=== PATIENT | male | born 1950 | race Caucasian/White ===

== ENCOUNTER 2017-07-25 16:04 | Emergency (ER) | payer MEDICARE ==
[2017-07-25 16:12] VITALS: RESP 18
[2017-07-25 17:13] LABS: Basophils % (A) 0 %; Eosinophils # (A) 0.5 k/uL (0-0.7); Eosinophils % (A) 5 %; HCT 41.9 % (39.0-53.0); HGB 14.4 gm/dL (13.0-17.5); Lymphocytes # (A) 1.2 k/uL (1.0-4.8); Lymphocytes % (A) 12 %; MCH 30.4 pg (25.0-35.0); MCHC 34.3 g/dL (31.0-37.0); MCV 88.6 fL (80.0-100.0); Mean Platelet Volume 7.9; Monocytes # (A) 0.5 k/uL (0-1.0); Monocytes % (A) 5 %; Neutrophils # (A) 7.2 k/uL (1.3-7.7); Neutrophils % (A) 76 %; Platelet Count 174 k/uL (150-450); RBC 4.73 m/uL (4.30-5.90); WBC 9.5 k/uL (3.8-10.6)
--- NOTE | 2017-07-25 17:14 | ED ---
General Adult HPI - General Chief complaint: Recheck/Abnormal Lab/Rx Stated complaint: Weakness Time Seen by Provider: 07/25/17 16:10 Source: patient, EMS, RN notes reviewed Mode of arrival: EMS Limitations: no limitations - History of Present Illness Initial comments: 67-year-old male presents emergency Department with chief complaint of feeling weak and episode of vomiting. Patient states that he apparently had a skilled nursing house. Patient is concerned that his lithium level is low though he states he does not take lithium. Patient states that he believes that this is related to his salt intake. Patient denies any headache, dizziness, drug use no complaints this time. Patient denies any diarrhea constipation. Patient denies any focal weakness he states he just generalized feels rundown. - Related Data Home Medications Medication Instructions Recorded Confirmed Omeprazole [PriLOSEC] 20 mg PO DAILY 04/08/14 07/25/17 Metoprolol Tartrate [Lopressor] 25 mg PO BID 04/12/14 07/25/17 Previous Rx's Medication Instructions Recorded Haloperidol [Haldol] 1 mg PO BID #60 tab 04/22/14 Lisinopril [Prinivil] 20 mg PO HS #30 tablet 04/22/14 Allergies Allergy/AdvReac Type Severity Reaction Status Date / Time laundry detergent Allergy Rash/Hives Uncoded 07/25/17 16:12 Review of Systems ROS Statement: Those systems with pertinent positive or pertinent negative responses have been documented in the HPI. ROS Other: All systems not noted in ROS Statement are negative. Past Medical History Past Medical History: Hyperlipidemia, Hypertension Additional Past Medical History / Comment(s): schizophrenia History of Any Multi-Drug Resistant Organisms: None Reported Past Surgical History: Hernia Repair Additional Past Surgical History / Comment(s): cataract Past Anesthesia/Blood Transfusion Reactions: No Reported Reaction Past Psychological History: Anxiety, Schizophrenia Smoking Status: Current every day smoker Past Alcohol Use History: None Reported, Unable to Obtain, Occasional Past Drug Use History: None Reported, Unable to Obtain General Exam Limitations: no limitations General appearance: alert, in no apparent distress Head exam: Present: atraumatic, normocephalic, normal inspection Eye exam: Present: normal appearance, PERRL, EOMI. Absent: scleral icterus, conjunctival injection, periorbital swelling ENT exam: Present: normal exam, normal oropharynx, mucous membranes moist Neck exam: Present: normal inspection, full ROM. Absent: tenderness, meningismus, lymphadenopathy Respiratory exam: Present: normal lung sounds bilaterally. Absent: respiratory distress, wheezes, rales, rhonchi, stridor Cardiovascular Exam: Present: regular rate, normal rhythm, normal heart sounds. Absent: systolic murmur, diastolic murmur, rubs, gallop, clicks GI/Abdominal exam: Present: soft, normal bowel sounds. Absent: distended, tenderness, guarding, rebound, rigid Neurological exam: Present: alert, oriented X3, CN II-XII intact, reflexes normal. Absent: motor sensory deficit Skin exam: Present: warm, dry, intact, normal color. Absent: rash Course Vital Signs 07/25/17 07/25/17 16:07 17:05 Temperature 98.6 F Pulse Rate 53 L Respiratory 18 18 Rate Blood Pressure 166/94 166/94 O2 Sat by Pulse 98 Oximetry EKG Findings - EKG Comments: EKG Findings:: 17:20 sinus rhythm with PACs rate of 72 WV 176 QRS 106 QT/QTC 414 /453 Medical Decision Making - Medical Decision Making 67-year-old male presented from it for feeling weak episode nausea vomiting. Patient was hydrated given antiemetics feels better. Patient had some bizarre thinking of concerns of lifting level and salt intake. I do believe this is related to his schizophrenia. He is not currently homicidal or suicidal. Patient refused CT and x-ray. Patient lab work which is unremarkable. Patient was offered psychiatric evaluation but he declined. Patient is making clear decisions at this time and will be discharged back to skilled nursing house. - Lab Data Result diagrams: 07/25/17 17:03 07/25/17 17:03 Lab Results 07/25/17 07/25/17 07/25/17 Range/Units 17:03 17:03 17:03 WBC 9.5 (3.8-10.6) k/uL RBC 4.73 (4.30-5.90) m/uL Hgb 14.4 (13.0-17.5) gm/dL Hct 41.9 (39.0-53.0) % MCV 88.6 (80.0-100.0) fL MCH 30.4 (25.0-35.0) pg MCHC 34.3 (31.0-37.0) g/dL RDW 14.0 (11.5-15.5) % Plt Count 174 (150-450) k/uL Neutrophils % 76 % Lymphocytes % 12 % Monocytes % 5 % Eosinophils % 5 % Basophils % 0 % Neutrophils # 7.2 (1.3-7.7) k/uL Lymphocytes # 1.2 (1.0-4.8) k/uL Monocytes # 0.5 (0-1.0) k/uL Eosinophils # 0.5 (0-0.7) k/uL Basophils # 0.0 (0-0.2) k/uL PT (9.0-12.0) sec INR (<1.2) APTT (22.0-30.0) sec Sodium 142 (137-145) mmol/L Potassium 3.6 (3.5-5.1) mmol/L Chloride 107 (98-107) mmol/L Carbon Dioxide 23 (22-30) mmol/L Anion Gap 12 mmol/L BUN 17 (9-20) mg/dL Creatinine 1.03 (0.66-1.25) mg/dL Est GFR (CKD-EPI)AfAm 88 (>60 ml/min/1.73 sqM) Est GFR (CKD-EPI)NonAf 76 (>60 ml/min/1.73 sqM) Glucose 96 (74-99) mg/dL Calcium 8.7 (8.4-10.2) mg/dL Magnesium 1.9 (1.6-2.3) mg/dL Total Bilirubin 0.7 (0.2-1.3) mg/dL AST 27 (17-59) U/L ALT 30 (21-72) U/L Alkaline Phosphatase 75 (38-126) U/L Total Creatine Kinase 110 (55-170) U/L CK-MB (CK-2) 1.3 (0.0-2.4) ng/mL CK-MB (CK-2) Rel Index 1.2 Troponin I <0.012 (0.000-0.034) ng/mL Total Protein 6.3 (6.3-8.2) g/dL Albumin 4.0 (3.5-5.0) g/dL Urine Color Urine Appearance (Clear) Urine pH (5.0-8.0) Ur Specific Wesley (1.001-1.035) Urine Protein (Negative) Urine Glucose (UA) (Negative) Urine Ketones (Negative) Urine Blood (Negative) Urine Nitrite (Negative) Urine Bilirubin (Negative) Urine Urobilinogen (<2.0) mg/dL Ur Leukocyte Esterase (Negative) Urine Opiates Screen (NotDetected) Ur Oxycodone Screen (NotDetected) Urine Methadone Screen (NotDetected) Ur Propoxyphene Screen (NotDetected) Ur Barbiturates Screen (NotDetected) U Tricyclic Antidepress (NotDetected) Ur Phencyclidine Scrn (NotDetected) Ur Amphetamines Screen (NotDetected) U Methamphetamines Scrn (NotDetected) U Benzodiazepines Scrn (NotDetected) Urine Cocaine Screen (NotDetected) U Marijuana (THC) Screen (NotDetected) Serum Alcohol <10 mg/dL 07/25/17 07/25/17 Range/Units 17:03 17:15 WBC (3.8-10.6) k/uL RBC (4.30-5.90) m/uL Hgb (13.0-17.5) gm/dL Hct (39.0-53.0) % MCV (80.0-100.0) fL MCH (25.0-35.0) pg MCHC (31.0-37.0) g/dL RDW (11.5-15.5) % Plt Count (150-450) k/uL Neutrophils % % Lymphocytes % % Monocytes % % Eosinophils % % Basophils % % Neutrophils # (1.3-7.7) k/uL Lymphocytes # (1.0-4.8) k/uL Monocytes # (0-1.0) k/uL Eosinophils # (0-0.7) k/uL Basophils # (0-0.2) k/uL PT 10.3 (9.0-12.0) sec INR 1.1 (<1.2) APTT 24.1 (22.0-30.0) sec Sodium (137-145) mmol/L Potassium (3.5-5.1) mmol/L Chloride (98-107) mmol/L Carbon Dioxide (22-30) mmol/L Anion Gap mmol/L BUN (9-20) mg/dL Creatinine (0.66-1.25) mg/dL Est GFR (CKD-EPI)AfAm (>60 ml/min/1.73 sqM) Est GFR (CKD-EPI)NonAf (>60 ml/min/1.73 sqM) Glucose (74-99) mg/dL Calcium (8.4-10.2) mg/dL Magnesium (1.6-2.3) mg/dL Total Bilirubin (0.2-1.3) mg/dL AST (17-59) U/L ALT (21-72) U/L Alkaline Phosphatase (38-126) U/L Total Creatine Kinase (55-170) U/L CK-MB (CK-2) (0.0-2.4) ng/mL CK-MB (CK-2) Rel Index Troponin I (0.000-0.034) ng/mL Total Protein (6.3-8.2) g/dL Albumin (3.5-5.0) g/dL Urine Color Colorless Urine Appearance Clear (Clear) Urine pH 5.0 (5.0-8.0) Ur Specific Wesley 1.004 (1.001-1.035) Urine Protein Negative (Negative) Urine Glucose (UA) Negative (Negative) Urine Ketones Negative (Negative) Urine Blood Negative (Negative) Urine Nitrite Negative (Negative) Urine Bilirubin Negative (Negative) Urine Urobilinogen <2.0 (<2.0) mg/dL Ur Leukocyte Esterase Negative (Negative) Urine Opiates Screen Not Detected (NotDetected) Ur Oxycodone Screen Not Detected (NotDetected) Urine Methadone Screen Not Detected (NotDetected) Ur Propoxyphene Screen Not Detected (NotDetected) Ur Barbiturates Screen Not Detected (NotDetected) U Tricyclic Antidepress Not Detected (NotDetected) Ur Phencyclidine Scrn Not Detected (NotDetected) Ur Amphetamines Screen Not Detected (NotDetected) U Methamphetamines Scrn Not Detected (NotDetected) U Benzodiazepines Scrn Not Detected (NotDetected) Urine Cocaine Screen Not Detected (NotDetected) U Marijuana (THC) Screen Not Detected (NotDetected) Serum Alcohol mg/dL Disposition Clinical Impression: Nausea & vomiting, Schizophrenia Disposition: HOME SELF-CARE Condition: Stable Instructions: Acute Nausea and Vomiting (ED) Additional Instructions: Please return to the Emergency Department if symptoms worsen or any other concerns. Is patient prescribed a controlled substance at d/c from ED?: No Referrals: Martin iVeyra MD [Primary Care Provider] - 1-2 days
[2017-07-25 17:25] LABS: INR 1.1 (<1.2); Partial Thromboplastin Time 24.1 sec (22.0-30.0); Prothrombin Time 10.3 sec (9.0-12.0)
[2017-07-25 17:26] LABS: ALT 30 U/L (21-72); AST 27 U/L (17-59); Alcohol <10 mg/dL; Alkaline Phosphatase 75 U/L (38-126); Anion Gap 12 mmol/L; Blood Urea Nitrogen 17 mg/dL (9-20); Calcium 8.7 mg/dL (8.4-10.2); Carbon Dioxide 23 mmol/L (22-30); Chloride 107 mmol/L (98-107); Glucose 96 mg/dL (74-99); Magnesium 1.9 mg/dL (1.6-2.3); Sodium 142 mmol/L (137-145); Total Bilirubin 0.7 mg/dL (0.2-1.3); Total Protein 6.3 g/dL (6.3-8.2)
[2017-07-25 17:29] LABS: Potassium 3.6 mmol/L (3.5-5.1)
[2017-07-25 17:31] LABS: Appearance,Urine Clear (Clear); Bilirubin,Urine Negative (Negative); Blood,Urine Negative (Negative); Color,Urine Colorless; Glucose,Urine (UA) Negative (Negative); Ketones,Urine Negative (Negative); Leukocyte Esterase,Urine Negative (Negative); Nitrite,Urine Negative (Negative); Protein,Urine Negative (Negative); Specific Gravity,Urine 1.004 (1.001-1.035); Urobilinogen,Urine <2.0 mg/dL (<2.0)
[2017-07-25 17:39] LABS: Creatine Kinase 110 U/L (55-170)
[2017-07-25 17:42] LABS: Amphetamine Screen,Urine Not Detected (NotDetected); Barbiturate Screen,Urine Not Detected (NotDetected); Benzodiazepines Screen,Urine Not Detected (NotDetected); Cocaine Screen,Urine Not Detected (NotDetected); Methadone Screen, Urine Not Detected (NotDetected); Opiate Screen,Urine Not Detected (NotDetected); Oxycodone Screen, Urine Not Detected (NotDetected); Phencyclidine Screen,Urine Not Detected (NotDetected); Tricyclic Antidepressant,Urine Not Detected (NotDetected); Urn Cannabinoid Scrn Not Detected (NotDetected)
[2017-07-25 17:53] LABS: Creatine Kinase MB 1.3 ng/mL (0.0-2.4); Troponin I <0.012 ng/mL (0.000-0.034)
[2017-07-25 18:25] VITALS: BP 148/92; PULSE 69; TEMP 98.7
== END 2017-07-25 18:27 | disposition home or self-care (01) ==
LOC: EC 16:04
DX: F20.9 Schizophrenia, unspecified (principal); R11.2 Nausea with vomiting, unspecified; I10 Essential (primary) hypertension; F17.200 Nicotine dependence, unspecified, uncomplicated; Z91.09 Other allergy status, other than to drugs and biological substances; Z79.899 Other long term (current) drug therapy
CPT/HCPCS: 36415; 80053; 80306; 80320; 81003; 82550; 82553; 83735; 84484; 85025; 85610; 85730; 93005; 99285

== ENCOUNTER 2018-01-06 18:12 | Inpatient (IN) | payer MEDICARE ==
[2018-01-06] MEDS ORDERED: IPRATROPIUM-ALBUTEROL 3 ML NEB INHALATION STA (18:26)
[2018-01-06] MEDS ORDERED: DEXAMETHASONE SOD PHOSPHATE 10 MG/ML 1 ML VIAL IV STA (18:27)
[2018-01-06] MEDS ORDERED: ALBUTEROL NEBULIZED 2.5 MG/3 ML INHALATION STA (18:27)
--- NOTE | 2018-01-06 18:39 | ED ---
General Adult HPI - General Chief complaint: Chest Pain Stated complaint: CHEST PAIN Time Seen by Provider: 01/06/18 18:14 Source: patient, RN notes reviewed, old records reviewed Mode of arrival: EMS Limitations: no limitations - History of Present Illness Initial comments: 67-year-old male presents for evaluation of cough and dyspnea. Patient has had cough for the past 2 weeks. This productive of yellow sputum. Patient denies fever but states he has had some chills. Today he developed lower chest pain which was worse with cough. Denies abdominal pain. Denies nausea vomiting or diarrhea. No diagnosis of COPD, however patient is a current smoker. - Related Data Home Medications Medication Instructions Recorded Confirmed RX: Omeprazole [PriLOSEC] 20 mg PO DAILY 04/08/14 01/06/18 RX: Metoprolol Tartrate [Lopressor] 25 mg PO DIRECTED 04/12/14 07/25/17 RX: Lisinopril [Prinivil] 20 mg PO DIRECTED 01/06/18 Previous Rx's Medication Instructions Recorded RX: Haloperidol [Haldol] 1 mg PO BID #60 tab 04/22/14 Allergies Allergy/AdvReac Type Severity Reaction Status Date / Time laundry detergent Allergy Rash/Hives Uncoded 01/06/18 18:17 Review of Systems ROS Statement: Those systems with pertinent positive or pertinent negative responses have been documented in the HPI. ROS Other: All systems not noted in ROS Statement are negative. Past Medical History Past Medical History: Hyperlipidemia, Hypertension Additional Past Medical History / Comment(s): schizophrenia History of Any Multi-Drug Resistant Organisms: None Reported Past Surgical History: Hernia Repair Additional Past Surgical History / Comment(s): cataract Past Anesthesia/Blood Transfusion Reactions: No Reported Reaction Past Psychological History: Anxiety, Schizophrenia Smoking Status: Current every day smoker Past Alcohol Use History: Occasional Past Drug Use History: None Reported General Exam Limitations: no limitations General appearance: alert, in no apparent distress Head exam: Present: atraumatic, normocephalic Eye exam: Present: normal appearance, PERRL ENT exam: Present: normal exam Neck exam: Present: normal inspection. Absent: tenderness Respiratory exam: Present: decreased breath sounds, other (Bronchospastic cough) . Absent: respiratory distress Cardiovascular Exam: Present: regular rate, normal rhythm GI/Abdominal exam: Present: soft. Absent: distended, tenderness Extremities exam: Present: normal inspection, normal capillary refill. Absent: pedal edema Neurological exam: Present: alert, oriented X3, CN II-XII intact. Absent: motor sensory deficit Psychiatric exam: Present: normal affect, normal mood Skin exam: Present: warm, dry, intact. Absent: cyanosis, diaphoretic Course Vital Signs 01/06/18 01/06/18 01/06/18 18:14 18:18 18:49 Temperature 99.5 F Pulse Rate 91 86 Respiratory 18 18 Rate Blood Pressure 135/90 O2 Sat by Pulse Oximetry 01/06/18 01/06/18 18:57 20:01 Temperature 99.1 F Pulse Rate 87 82 Respiratory 16 Rate Blood Pressure 118/77 O2 Sat by Pulse 96 Oximetry EKG Findings - EKG Comments: EKG Findings:: EKG: Normal sinus rhythm, possible left atrial enlargement, rate of 89, FL interval 158, QRS duration 100, QTC 445, no ST segment elevation. Medical Decision Making - Medical Decision Making 67-year-old male presenting with cough, dyspnea, and chest pain. Patient's symptoms have been ongoing for 2 weeks. He does not have a diagnosis of COPD, but his cough is bronchospastic and productive of yellow sputum. And he is a current smoker, I suspect he does have COPD. Given albuterol, Atrovent, and steroids in the emergency department, slight improvement in respiratory status, however he remains somewhat dyspneic on reevaluation. Workup in the emergency department reveals chest x-ray which is negative for focal pneumonia or acute findings, CBC shows leukocytosis of 16.9, mild lactic acidosis 2.1, troponin and BNP are negative. Patient will be placed in observation for continued treatment of reactive airway disease and likely COPD. Case discussed with Dr. Vieyra who will accept. - Lab Data Result diagrams: 01/06/18 18:22 01/06/18 18:22 Lab Results 01/06/18 01/06/18 01/06/18 Range/Units 18:22 18:22 18:22 WBC 16.9 H (3.8-10.6) k/uL RBC 5.27 (4.30-5.90) m/uL Hgb 16.0 (13.0-17.5) gm/dL Hct 46.5 (39.0-53.0) % MCV 88.2 (80.0-100.0) fL MCH 30.3 (25.0-35.0) pg MCHC 34.3 (31.0-37.0) g/dL RDW 13.4 (11.5-15.5) % Plt Count 255 (150-450) k/uL Neutrophils % 82 % Lymphocytes % 8 % Monocytes % 6 % Eosinophils % 1 % Basophils % 0 % Neutrophils # 13.9 H (1.3-7.7) k/uL Lymphocytes # 1.4 (1.0-4.8) k/uL Monocytes # 1.1 H (0-1.0) k/uL Eosinophils # 0.2 (0-0.7) k/uL Basophils # 0.1 (0-0.2) k/uL PT (9.0-12.0) sec INR (<1.2) APTT (22.0-30.0) sec Sodium 131 L (137-145) mmol/L Potassium 3.9 (3.5-5.1) mmol/L Chloride 93 L (98-107) mmol/L Carbon Dioxide 25 (22-30) mmol/L Anion Gap 13 mmol/L BUN 33 H (9-20) mg/dL Creatinine 1.14 (0.66-1.25) mg/dL Est GFR (CKD-EPI)AfAm 78 (>60 ml/min/1.73 sqM) Est GFR (CKD-EPI)NonAf 68 (>60 ml/min/1.73 sqM) Glucose 135 H (74-99) mg/dL Plasma Lactic Acid Aly (0.7-2.0) mmol/L Calcium 9.7 (8.4-10.2) mg/dL Magnesium 2.0 (1.6-2.3) mg/dL Total Bilirubin 1.3 (0.2-1.3) mg/dL AST 28 (17-59) U/L ALT 32 (21-72) U/L Alkaline Phosphatase 98 (38-126) U/L Total Creatine Kinase 182 H (55-170) U/L CK-MB (CK-2) 2.1 (0.0-2.4) ng/mL CK-MB (CK-2) Rel Index 1.2 Troponin I <0.012 (0.000-0.034) ng/mL NT-Pro-B Natriuret Pep pg/mL Total Protein 7.1 (6.3-8.2) g/dL Albumin 4.2 (3.5-5.0) g/dL 01/06/18 01/06/18 01/06/18 Range/Units 18:22 18:22 18:22 WBC (3.8-10.6) k/uL RBC (4.30-5.90) m/uL Hgb (13.0-17.5) gm/dL Hct (39.0-53.0) % MCV (80.0-100.0) fL MCH (25.0-35.0) pg MCHC (31.0-37.0) g/dL RDW (11.5-15.5) % Plt Count (150-450) k/uL Neutrophils % % Lymphocytes % % Monocytes % % Eosinophils % % Basophils % % Neutrophils # (1.3-7.7) k/uL Lymphocytes # (1.0-4.8) k/uL Monocytes # (0-1.0) k/uL Eosinophils # (0-0.7) k/uL Basophils # (0-0.2) k/uL PT 10.7 (9.0-12.0) sec INR 1.1 (<1.2) APTT 28.6 (22.0-30.0) sec Sodium (137-145) mmol/L Potassium (3.5-5.1) mmol/L Chloride (98-107) mmol/L Carbon Dioxide (22-30) mmol/L Anion Gap mmol/L BUN (9-20) mg/dL Creatinine (0.66-1.25) mg/dL Est GFR (CKD-EPI)AfAm (>60 ml/min/1.73 sqM) Est GFR (CKD-EPI)NonAf (>60 ml/min/1.73 sqM) Glucose (74-99) mg/dL Plasma Lactic Acid Aly 2.1 H* (0.7-2.0) mmol/L Calcium (8.4-10.2) mg/dL Magnesium (1.6-2.3) mg/dL Total Bilirubin (0.2-1.3) mg/dL AST (17-59) U/L ALT (21-72) U/L Alkaline Phosphatase (38-126) U/L Total Creatine Kinase (55-170) U/L CK-MB (CK-2) (0.0-2.4) ng/mL CK-MB (CK-2) Rel Index Troponin I (0.000-0.034) ng/mL NT-Pro-B Natriuret Pep 50 pg/mL Total Protein (6.3-8.2) g/dL Albumin (3.5-5.0) g/dL Disposition Clinical Impression: Dyspnea, Reactive airway disease Disposition: ADMITTED IP TO THIS HOSP Condition: Stable Is patient prescribed a controlled substance at d/c from ED?: No Referrals: Martin Vieyra MD [Primary Care Provider] - 1-2 days Decision to Admit Reason: Admit from EC Decision Date: 01/06/18 Decision Time: 20:04
[2018-01-06 18:42] LABS: Basophils # (A) 0.1 k/uL (0-0.2); Basophils % (A) 0 %; Eosinophils # (A) 0.2 k/uL (0-0.7); Eosinophils % (A) 1 %; HCT 46.5 % (39.0-53.0); Lymphocytes # (A) 1.4 k/uL (1.0-4.8); Lymphocytes % (A) 8 %; MCH 30.3 pg (25.0-35.0); MCHC 34.3 g/dL (31.0-37.0); MCV 88.2 fL (80.0-100.0); Mean Platelet Volume 7.5; Monocytes # (A) 1.1 k/uL (0-1.0); Monocytes % (A) 6 %; Neutrophils # (A) 13.9 k/uL (1.3-7.7); Neutrophils % (A) 82 %; Platelet Count 255 k/uL (150-450); RBC 5.27 m/uL (4.30-5.90); RDW 13.4 % (11.5-15.5); WBC 16.9 k/uL (3.8-10.6)
[2018-01-06 18:53] LABS: Albumin 4.2 g/dL (3.5-5.0); Calcium 9.7 mg/dL (8.4-10.2); Potassium 3.9 mmol/L (3.5-5.1); Total Bilirubin 1.3 mg/dL (0.2-1.3); Total Protein 7.1 g/dL (6.3-8.2)
[2018-01-06] MEDS ORDERED: SODIUM CHLORIDE 0.9% 500 ML 500 ML IV ONE (18:53)
[2018-01-06] MEDS ORDERED: ASPIRIN 325 MG TAB PO STA (18:53)
[2018-01-06 18:57] LABS: Creatine Kinase 182 U/L (55-170)
[2018-01-06 19:03] LABS: INR 1.1 (<1.2)
[2018-01-06 19:04] LABS: Partial Thromboplastin Time 28.6 sec (22.0-30.0); Prothrombin Time 10.7 sec (9.0-12.0)
[2018-01-06 19:10] LABS: Creatine Kinase MB 2.1 ng/mL (0.0-2.4); Troponin I <0.012 ng/mL (0.000-0.034)
--- NOTE | 2018-01-06 19:12 | XR ---
EXAMINATION TYPE: XR chest 2V DATE OF EXAM: 01/06/2018 COMPARISON: 04/08/2014 HISTORY: Cough and congestion TECHNIQUE: Frontal and lateral views of the chest are obtained. FINDINGS: Heart and mediastinum are normal. Lungs are clear. Diaphragm is normal. Bony thorax appear s normal. IMPRESSION: Normal chest. There is clearing of focal atelectasis left lung base compared to old exam .
[2018-01-06] MEDS ORDERED: NALOXONE 0.4 MG/ML 1 ML VIAL IV PRN (19:39)
[2018-01-06] MEDS ORDERED: ALBUTEROL NEBULIZED 2.5 MG/3 ML INHALATION PRN (19:42)
[2018-01-06] MEDS ORDERED: IPRATROPIUM-ALBUTEROL 3 ML NEB INHALATION PRN (19:42)
[2018-01-06] MEDS ORDERED: AZITHROMYCIN 500 MG TAB PO STA (19:43)
[2018-01-06] MEDS: IPRATROPIUM-ALBUTEROL 3 ML NEB INHALATION SCH ×2 (19:56→23:36)
[2018-01-06] MEDS ORDERED: HALOPERIDOL 1 MG TAB PO SCH (23:45)
[2018-01-07] MEDS: methylPREDNISolone SOD SUCCI 125 MG/2 ML VIAL IV SCH ×4 (00:48→23:06)
[2018-01-07] MEDS ORDERED: HALOPERIDOL 0.5 MG TAB PO STA (00:48)
[2018-01-07] MEDS: IPRATROPIUM-ALBUTEROL 3 ML NEB INHALATION SCH ×6 (03:32→23:01)
[2018-01-07 05:15] VITALS: BMI 26.6
[2018-01-07 07:22] LABS: Glucose,Whole Blood 169 mg/dL (75-99)
[2018-01-07] MEDS: HALOPERIDOL 0.5 MG TAB PO SCH ×2 (08:47→20:01)
[2018-01-07 12:27] LABS: Glucose,Whole Blood 179 mg/dL (75-99)
[2018-01-07] MEDS ORDERED: RX INFO: IV CONTRAST WAS GIVEN 1 EACH MISC MISCELLANE PRN (16:58)
[2018-01-07 17:11] LABS: Glucose,Whole Blood 212 mg/dL (75-99)
--- NOTE | 2018-01-07 19:03 | HP ---
HISTORY AND PHYSICAL CHIEF COMPLAINT: A 67-year-old white male presents to the hospital with COPD exacerbation, respiratory distress. He is a smoker, 1-2 packs a day. He has history of COPD, but he denies it, he has been short of breath and smoking for many years. HOME MEDICATIONS: He takes inhalers which I do not see in his list. He takes Prilosec, metoprolol, Prinivil. ALLERGIES: LAUNDRY DETERGENT. REVIEW OF SYSTEM: Fourteen point review of systems negative except for mentioned in HPI. PAST MEDICAL HISTORY: Dyslipidemia, hypertension, schizophrenia, hernia repair, cataract surgery, anxiety, schizophrenia. Current everyday smoker. PHYSICAL EXAM: Vital signs stable, afebrile. Hematology negative Homans. Temp 99.5, pulse 86 to 91, respiratory 16 to 18, blood pressure is 135/90. EKG shows sinus rhythm. Chest x-ray is negative. BUN 33, creatinine 1.14. White count 16.9. ASSESSMENT: 1. Chronic obstructive pulmonary disease exacerbation. 2. Tracheobronchitis. 3. Rule out community-acquired pneumonia. 4. Mild lactic acidosis. IV antibiotics, IV steroids, updraft treatments. Follow up next 24 to 48 hours. MMODL / IJN: [id number] /
[2018-01-07] MEDS ORDERED: LORazepam 2 MG/ML INJ IV STA (19:18)
[2018-01-07] MEDS: AZITHROMYCIN 500 MG TAB PO SCH (20:01)
[2018-01-07 21:02] LABS: Glucose,Whole Blood 174 mg/dL (75-99)
--- NOTE | 2018-01-07 21:39 | CT ---
EXAMINATION TYPE: CT chest angio for PE DATE OF EXAM: 01/07/2018 COMPARISON: Chest x-ray 01/06/2018 HISTORY: Smoker, shortness of breath. CT DLP: 276.9 mGycm Automated exposure control for dose reduction was used. CONTRAST: CT Chest for pulmonary embolism performed with with IV Contrast, patient injected with 70ml mL of Iso ahsan 370. FINDINGS: Suspect there is a substernal goiter which displaces the trachea extends into the superior mediastinum LUNGS: Linear bands at the lung bases may reflect scarring on the right, there is bronchial wall thic kening centrally, correlate for bronchitis. There is no pleural effusion or pneumothorax seen. The t racheobronchial tree is patent. MEDIASTINUM: There is satisfactory enhancement of the pulmonary artery and its branches, there is no CT evidence for pulmonary embolism. There are no greater than 1 cm hilar or mediastinal lymph nodes. No pericardial effusion is seen. Question left ventricular hypertrophy. Coronary artery calcificat ions present. AORTA: Ascending aorta is aneurysmal at 4.2 cm. Proximal descending aorta 2.9 cm. OTHER: Cystic focus associated with the right kidney measuring 3 cm. 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 Consider echocardiography for possible left ventricular hypertrophy, cons ider subaortic stenosis. There are coronary artery calcifications. Correlate for bronchitis. Probable basilar scarring. Additional findings above.
[2018-01-08] MEDS: IPRATROPIUM-ALBUTEROL 3 ML NEB INHALATION SCH ×5 (03:12→19:55)
[2018-01-08 07:19] LABS: Glucose,Whole Blood 170 mg/dL (75-99)
[2018-01-08] MEDS: methylPREDNISolone SOD SUCCI 125 MG/2 ML VIAL IV SCH ×2 (07:28→16:05)
[2018-01-08] MEDS: BUDESONIDE 0.5 MG/2 ML NEBU INHALATION SCH ×2 (07:30→19:55)
--- NOTE | 2018-01-08 07:55 | CONS ---
CONSULTATION Celio Loza is a 67-year-old male who presented to [facility] on 01/06/2018. He had been coughing for approximately 2-3 weeks, had been walking outside and subsequently became more short of breath. He was seen in the ER after he was brought in by EMS for further evaluation and treatment. He had been coughing up some yellowish phlegm and had some low chest pain as well. PAST MEDICAL HISTORY: Positive for hyperlipidemia, hypertension, schizophrenia, hernia repair, anxiety. SOCIAL HISTORY: Patient is an everyday smoker. Does not drink alcohol excessively. REVIEW OF SYSTEMS: Noncontributory. PHYSICAL EXAMINATION: Pulse rate is 90, blood pressure 107/55, respiratory rate of 16, O2 SAT on room air is 93% with a temperature of 97.9. HEENT reveals pupils that are equal. Neck is supple. Chest reveals decreased breath sounds as faint expiratory wheeze on forced expiration. Cardiovascular system is S1, S2. There is a short systolic murmur heard. Abdomen is soft. There is no pedal edema. LABS: Reveal white count 16.9, hemoglobin of 16. Sodium 131, potassium 3.9, chloride 93, bicarb 25, BUN 33, creatinine 1.14, glucose 134. CT scan of the chest was done which showed evidence of a large mass encircling the trachea consistent with a substernal goiter. There is no evidence of PE. There is basilar scarring. IMPRESSION: 1. Asthma with chronic obstructive pulmonary disease with acute exacerbation. 2. Possible secondary bacterial infection due to leukocytosis. 3. Substernal goiter versus other etiology. 4. Possible valvular heart disease. At this point in time, we would check a BNP level no study. BNP level had recheck [facility] at this point in time, we would check an echo of the heart. Check a CT scan of the neck. Keep him on bronchodilators, IV steroids add aerosolized steroids and montelukast his regimen continue azithromycin. Depending on how he does we should make further changes to his care. We should keep him on GI and DVT prophylaxis. MMODL / IJN: [id number] /
--- NOTE | 2018-01-08 08:06 | US ---
EXAMINATION TYPE: US thyroid st tissue head/neck DATE OF EXAM: 01/08/2018 COMPARISON: [id number] CLINICAL HISTORY: thyroid ultrasound. GLAND SIZE: Right Lobe: 5.3 x 2.8 x 2.7 cm Overall Parenchyma: heterogenous Left Lobe: 8.3 x 6.4 x 3.6 cm Overall Parenchyma: heterogeneous Isthmus Thickness: 1.2 cm NODULES RIGHT: # of nodules measured on right: 0 LEFT: # of nodules measured on left: 1 (consolidated area) 1. 5.7 X 4.2 x 3.8 cm isoechoic solid nodule at the mid and lower pole with well-defined margins. This nodule is wider than tall and shows intranodular vascularity. ISTHMUS: # of nodules measured in the isthmus: 0 Bilateral neck scanned: no evidence of lymphadenopathy. IMPRESSION: Thyromegaly correlate for thyroiditis. Large 5.7 cm left thyroid nodule noted.
[2018-01-08 09:12] LABS: Basophils % (A) 0 %; Eosinophils % (A) 0 %; HCT 44.2 % (39.0-53.0); HGB 14.8 gm/dL (13.0-17.5); Lymphocytes # (A) 0.6 k/uL (1.0-4.8); Lymphocytes % (A) 3 %; MCH 29.8 pg (25.0-35.0); MCHC 33.5 g/dL (31.0-37.0); Mean Platelet Volume 7.3; Monocytes # (A) 0.6 k/uL (0-1.0); Monocytes % (A) 3 %; Neutrophils # (A) 21.2 k/uL (1.3-7.7); Neutrophils % (A) 94 %; Platelet Count 307 k/uL (150-450); RBC 4.97 m/uL (4.30-5.90); RDW 13.7 % (11.5-15.5); WBC 22.5 k/uL (3.8-10.6)
[2018-01-08 09:34] LABS: ALT 29 U/L (21-72); AST 29 U/L (17-59); Albumin 4.1 g/dL (3.5-5.0); Alkaline Phosphatase 103 U/L (38-126); Anion Gap 14 mmol/L; Blood Urea Nitrogen 33 mg/dL (9-20); Calcium 9.8 mg/dL (8.4-10.2); Carbon Dioxide 24 mmol/L (22-30); Chloride 96 mmol/L (98-107); Glucose 152 mg/dL (74-99); Potassium 3.8 mmol/L (3.5-5.1); Sodium 134 mmol/L (137-145); Total Bilirubin 0.7 mg/dL (0.2-1.3); Total Protein 6.8 g/dL (6.3-8.2)
[2018-01-08] MEDS ORDERED: MENTHOL (NICE) LOZENGE MUCOUS MEM PRN (09:57)
[2018-01-08] MEDS: HEPARIN SODIUM,PORCINE 5,000 UNIT/ML 1 ML VIAL SQ SCH ×2 (10:07→20:54)
[2018-01-08] MEDS: HALOPERIDOL 0.5 MG TAB PO SCH ×2 (10:07→20:53)
--- NOTE | 2018-01-08 10:31 | ECHOF ---
Referral Reason:[facility] subaortic stenosis MEASUREMENTS -------- HEIGHT: 175.3 cm WEIGHT: 81.7 kg BP: 131/69 RVIDd: 3.3 cm (< 3.3) IVSd: 1.5 cm (0.6 - 1.1) LVIDd: 4.4 cm (3.9 - 5.3) LVPWd: 1.3 cm (0.6 - 1.1) IVSs: 2.0 cm LVIDs: 3.4 cm LVPWs: 1.7 cm LA Diam: 3.3 cm (2.7 - 3.8) LAESV Index (A-L): 15.80 ml/m Ao Diam: 3.3 cm (2.0 - 3.7) AV Cusp: 2.5 cm (1.5 - 2.6) MV EXCURSION: 19.436 mm (> 18.000) MV EF SLOPE: 124 mm/s (70 - 150) EPSS: 0.3 cm MV E Cristian: 0.72 m/s MV DecT: 231 ms MV A Cristian: 0.84 m/s MV E/A Ratio: 0.86 RAP: 5.00 mmHg RVSP: 34.73 mmHg FINDINGS -------- Sinus rhythm. This was a technically adequate study. The left ventricular size is normal. There is moderate concentric left ventricular hypertrophy. O verall left ventricular systolic function is normal with, an EF between 60 - 65 %. Sigmoid shaped s eptum with focal hypertrophy of the basal septum. The right ventricle is mildly enlarged. Normal LA size by volume 22+/-6 ml/m2. The right atrium is normal in size. The aortic valve is trileaflet and appears structurally normal. There is trace to mild mitral regurgitation. Mild tricuspid regurgitation present. There is mild pulmonary hypertension. The right ventricular systolic pressure, as measured by Doppler, is 34.73mmHg. The pulmonic valve was not well visualized. The aortic root size is normal. IVC Not well visulized. There is no pericardial effusion. CONCLUSIONS -------- 1. Sinus rhythm. 2. This was a technically adequate study. 3. The left ventricular size is normal. 4. There is moderate concentric left ventricular hypertrophy. 5. Overall left ventricular systolic function is normal with, an EF between 60 - 65 %. 6. Sigmoid shaped septum with focal hypertrophy of the basal septum. 7. The right ventricle is mildly enlarged. 8. Normal LA size by volume 22+/-6 ml/m2. 9. The right atrium is normal in size. 10. The aortic valve is trileaflet and appears structurally normal. 11. There is trace to mild mitral regurgitation. 12. Mild tricuspid regurgitation present. 13. There is mild pulmonary hypertension. 14. The right ventricular systolic pressure, as measured by Doppler, is 34.73mmHg. 15. The pulmonic valve was not well visualized. 16. The aortic root size is normal. 17. IVC Not well visulized. 18. There is no pericardial effusion. [employer] REP: Josie Li RDCS
[2018-01-08 12:41] LABS: Glucose,Whole Blood 171 mg/dL (75-99)
--- NOTE | 2018-01-08 12:44 | CT ---
EXAMINATION TYPE: CT soft tissue neck wo con DATE OF EXAM: 01/08/2018 HISTORY: Substernal goiter. COMPARISON: 01/07/2018 and 01/08/2018 CT DLP: 461.6 mGycm. Automated Exposure Control for Dose Reduction was Utilized. TECHNIQUE: CT scan of the neck is performed without contrast, axial images are obtained, coronal and sagittal reformatted images are reviewed. FINDINGS: Airway: No gross abnormality seen. Supraglottic and inferred glottic airway remain patent and unremar kable. Vallecula and piriform sinuses contain small amount of secretions. There is symmetry of the fa lse vocal cords and true vocal cords. Parotid/submandibular glands: No gross abnormality seen. Carotid/Vascular Structures: Ascending thoracic aorta is upper limits of normal measuring 4.0 cm. Osseous Structures: Moderate mucosal thickening is seen circumferentially within the maxillary sinuse s and within the ethmoid sinuses. The visualized portions of the sphenoid sinus and mastoid air cells are well aerated. Multilevel degenerative change of the cervical spine is noted. Other: There is thyroid enlargement that is global, however asymmetric with left lobe larger than rig ht creating rightward tracheal deviation with substernal extent. The known left-sided 5.7 cm isoechoi c thyroid nodule is not well delineated on noncontrast CT, however posteriorly there are curvilinear thick calcifications. No adenopathy is appreciated in the neck. IMPRESSION: 1. Enlarged and heterogenous thyroid gland with substernal extent creating rightward tracheal deviati on. Fine-needle aspiration could be performed for the 5.7 cm left thyroid nodule on the prior ultraso und of 01/08/2018. No adenopathy is appreciated within the neck. 2. Moderate paranasal sinus disease.
--- NOTE | 2018-01-08 14:20 | P.PN ---
Subjective Progress Note Date: 01/08/18 HPI: This is a 67-year-old male who presented to [facility] on 2017. He had been coughing for approximately 2-3 weeks, had been walking outside and subsequently became short of breath. He was seen in the ER after he was brought in by EMS for further evaluation and treatment. He had been coughing up some yellowish phlegm and had some low chest pain as well. He does have a past medical history positive for hyperlipidemia, hypertension, schizophrenia, hernia repair and anxiety. Patient is also a current every day smoker. Denies any alcohol use The patient did have a CT of the chest which did show a probable substernal goiter, consider echocardiogram for possible left ventricular hypertrophy, consider subaortic stenosis, coronary artery calcifications, bronchitis, probable basilar scarring. Interval history: 09/07/2017patient is being seen examined and evaluated on rounds. Patient did have a CT of the soft tissue of the neck without contrast which did reveal enlarged and heterogeneous thyroid gland with substernal extension creating rightward tracheal deviation, fine needle aspiration could be performed of the 5.7 cm left thyroid nodule on the prior ultrasound that was noted, also moderate perinasal sinus disease was noted. Patient also had an echocardiogram which did reveal an EF of 60-65% RVSP was 34.73. Consults replace for cardio thoracic as well as Gen. surgery appreciate recommendations from both. Patient' s white count today is 22.5. Sputum and blood cultures are pending. Patient is afebrile no further complaints. Is on room air. Continues to have shortness of breath with exertion and activity and a productive cough. Objective - Vital Signs Vital signs: Vital Signs Temp 96.8 F L 01/08/18 08:28 Pulse 100 01/08/18 11:14 Resp 18 01/08/18 08:28 BP 130/68 01/08/18 08:28 Pulse Ox 95 01/08/18 08:28 Intake & Output 01/07/18 01/08/18 01/08/18 18:59 06:59 18:59 Intake Total 120 Balance 120 Intake: Oral 120 Other: Voiding Method Toilet # Voids 1 1 - Exam GENERAL EXAM: Alert, active, comfortable in no apparent distress. HEAD: Normocephalic. EYES: Normal reaction of pupils, equal size. NOSE: Clear with pink turbinates. THROAT: No erythema or exudates. NECK: No masses, no JVD. CHEST: No chest wall deformity. LUNGS: Equal air entry did have some upper airway wheezing, likely related to goiter, airway obstruction CVS: S1 and S2 normal with short systolic mumurs, regular rhythm. ABDOMEN: No hepatosplenomegaly, normal bowel sounds, no guarding or rigidity. EXTREMITIES: No edema noted, pedal pulses palpable. CENTRAL NERVOUS SYSTEM: No focal deficits, tone is normal in all 4 extremities. - Labs CBC & Chem 7: 01/08/18 08:34 01/08/18 08:34 Labs: Abnormal Lab Results - Last 24 Hours (Table) 01/07/18 01/07/18 01/08/18 Range/Units 17:06 21:01 07:09 WBC (3.8-10.6) k/uL Neutrophils # (1.3-7.7) k/uL Lymphocytes # (1.0-4.8) k/uL Sodium (137-145) mmol/L Chloride (98-107) mmol/L BUN (9-20) mg/dL Glucose (74-99) mg/dL POC Glucose (mg/dL) 212 H 174 H 170 H (75-99) mg/dL 01/08/18 01/08/18 01/08/18 Range/Units 08:34 08:34 12:09 WBC 22.5 H (3.8-10.6) k/uL Neutrophils # 21.2 H (1.3-7.7) k/uL Lymphocytes # 0.6 L (1.0-4.8) k/uL Sodium 134 L (137-145) mmol/L Chloride 96 L (98-107) mmol/L BUN 33 H (9-20) mg/dL Glucose 152 H (74-99) mg/dL POC Glucose (mg/dL) 171 H (75-99) mg/dL Microbiology - Last 24 Hours (Table) 01/07/18 06:22 Gram Stain - Preliminary Sputum Sputum Culture - Preliminary 01/06/18 18:22 Blood Culture - Preliminary Blood No Growth after 24 hours Assessment and Plan Assessment: Assessment Acute exacerbation of COPD Acute exacerbation of asthma baseline asthma status unknown Possibly secondary bacterial infection due to leukocytosis, tracheobronchitis Substernal later versus other etiology Possible valvular heart disease Plan Medications have been reviewed and will be continued as ordered. Echocardiogram revealed CT of the neck reviewed Continue with IV steroid taper Continue with antibiotics and Singulair Appreciate recommendations from consults Continue with pulmonary hygiene, coughing and deep breathing exercises, and supportive care. Supplemental oxygen to maintain oxygen saturations of 92% or better. Continue nebulizer treatments. GI and DVT prophylaxis. We will continue to monitor labs/results and adjust treatment as necessary. Further recommendations pending. I, the signing physician performed an examination of the patient, discussed and directed their management with the nurse practitioner. I have reviewed the nurse practitioner's note and agree with the documented findings, orders and plan of care.
--- NOTE | 2018-01-08 14:32 | P.GSCN ---
History of Present Illness Consult date: 01/08/18 Reason for Consult: Upper airway obstruction, surgical recommendations Requesting physician: Kameron Camejo History of present illness: This is a 67-year-old patient of Dr. Martin Vieyra. He has a previous medical history of hypertension, hyperlipidemia, schizophrenia, current tobacco dependence, and occasional alcohol use. He presented to [facility] emergency room on January 06 with complaints of productive cough with thick yellow sputum and shortness of breath 2 weeks. In addition he complained of chest pain secondary to his coughing. He denied fever but did admit to some chills, no abdominal pain, nausea, vomiting, diarrhea. Chest x-ray was completed which demonstrated no acute process. CTA of the chest was obtained, no pulmonary emboli were present but there was evidence of a substernal goiter. The patient was admitted for evaluation and treatment. An ultrasound of the thyroid was completed demonstrating thyromegaly with possible thyroiditis. CT of the soft tissue of the neck was completed demonstrating enlarged and heterogeneous thyroid gland with rightward tracheal deviation. Dr. Willis from cardiothoracic surgery was consulted for upper airway obstruction. Review of Systems Review of systems was completed and was negative except as noted. - Cardiovascular Reports chest pain - Respiratory Reports as per HPI, Reports cough, Reports cough with sputum, Reports dyspnea Past Medical History Past Medical History: Heart Failure, Hyperlipidemia, Hypertension Additional Past Medical History / Comment(s): Irregular heart rhythm 40 years ago per patient, CHF in 2003 (resolved per patient). History of Any Multi-Drug Resistant Organisms: None Reported Past Surgical History: Hernia Repair Additional Past Surgical History / Comment(s): BL cataracts w/ lens implants. Past Anesthesia/Blood Transfusion Reactions: No Reported Reaction Past Psychological History: Anxiety, Schizophrenia Smoking Status: Current some day smoker Past Alcohol Use History: Occasional Additional Past Alcohol Use History / Comment(s): Pt. reports drinking 1-2 glasses of beer or wine 1-2x a week. States he smokes a few cigars every day and will sometimes smoke cigarettes. Denies cocaine, heroin, marijuana, or opiate use/abuse. Lives at [facility]. Past Drug Use History: None Reported - Past Family History Mother Family Medical History: Unable to Obtain Father Family Medical History: Unable to Obtain Medications and Allergies Home Medications Medication Instructions Recorded Confirmed Type Omeprazole [PriLOSEC] 20 mg PO DAILY 04/08/14 01/07/18 History Haloperidol [Haldol] 1 mg PO BID #60 tab 04/22/14 01/07/18 Rx Lisinopril [Prinivil] 20 mg PO DAILY 01/06/18 01/07/18 History Chlorthalidone 25 mg PO DAILY 01/07/18 01/07/18 History Allergies Allergy/AdvReac Type Severity Reaction Status Date / Time laundry detergent Allergy Rash/Hives Uncoded 01/07/18 01:26 Surgical - Exam Vital Signs Temp Pulse Resp BP 99.5 F 91 18 135/90 01/06/18 18:14 01/06/18 18:14 01/06/18 18:14 01/06/18 18:14 - General well developed, well nourished, no distress, no pain - Eyes PERRL, normal ocular movement - ENT no hearing loss, poor halfway - Neck no masses, no bruits, trachea midline - Respiratory Lungs sounds diminished bilaterally. Respirations even, nonlabored. Currently on room air with oxygen saturation 95%. - Cardiovascular S1, S2 present. Regular rate and rhythm. Palpable peripheral pulses bilaterally. No edema present. No calf pain or tenderness noted. - Abdomen Abdomen: soft, non tender, bowel sounds - Genitourinary Deferred - Rectum Deferred - Integumentary no rash, no growths - Neurologic normal coordination, normal sensation - Musculoskeletal normal gait, normal posture - Psychiatric oriented to time, oriented to person, oriented to place, speech is normal, memory intact Results - Labs 01/08/18 08:34 01/08/18 08:34 Abnormal Lab Results - Last 24 Hours (Table) 01/07/18 01/07/18 01/08/18 Range/Units 17:06 21:01 07:09 WBC (3.8-10.6) k/uL Neutrophils # (1.3-7.7) k/uL Lymphocytes # (1.0-4.8) k/uL Sodium (137-145) mmol/L Chloride (98-107) mmol/L BUN (9-20) mg/dL Glucose (74-99) mg/dL POC Glucose (mg/dL) 212 H 174 H 170 H (75-99) mg/dL 01/08/18 01/08/18 01/08/18 Range/Units 08:34 08:34 12:09 WBC 22.5 H (3.8-10.6) k/uL Neutrophils # 21.2 H (1.3-7.7) k/uL Lymphocytes # 0.6 L (1.0-4.8) k/uL Sodium 134 L (137-145) mmol/L Chloride 96 L (98-107) mmol/L BUN 33 H (9-20) mg/dL Glucose 152 H (74-99) mg/dL POC Glucose (mg/dL) 171 H (75-99) mg/dL Microbiology - Last 24 Hours (Table) 01/07/18 06:22 Gram Stain - Preliminary Sputum Sputum Culture - Preliminary 01/06/18 18:22 Blood Culture - Preliminary Blood No Growth after 24 hours Diabetes panel 01/08/18 Range/Units 08:34 Sodium 134 L (137-145) mmol/L Potassium 3.8 (3.5-5.1) mmol/L Chloride 96 L (98-107) mmol/L Carbon Dioxide 24 (22-30) mmol/L BUN 33 H (9-20) mg/dL Creatinine 1.01 (0.66-1.25) mg/dL Glucose 152 H (74-99) mg/dL Calcium 9.8 (8.4-10.2) mg/dL AST 29 (17-59) U/L ALT 29 (21-72) U/L Alkaline Phosphatase 103 (38-126) U/L Total Protein 6.8 (6.3-8.2) g/dL Albumin 4.1 (3.5-5.0) g/dL Calcium panel 01/08/18 Range/Units 08:34 Calcium 9.8 (8.4-10.2) mg/dL Albumin 4.1 (3.5-5.0) g/dL Pituitary panel 01/08/18 Range/Units 08:34 Sodium 134 L (137-145) mmol/L Potassium 3.8 (3.5-5.1) mmol/L Chloride 96 L (98-107) mmol/L Carbon Dioxide 24 (22-30) mmol/L BUN 33 H (9-20) mg/dL Creatinine 1.01 (0.66-1.25) mg/dL Glucose 152 H (74-99) mg/dL Calcium 9.8 (8.4-10.2) mg/dL Adrenal panel 01/08/18 Range/Units 08:34 Sodium 134 L (137-145) mmol/L Potassium 3.8 (3.5-5.1) mmol/L Chloride 96 L (98-107) mmol/L Carbon Dioxide 24 (22-30) mmol/L BUN 33 H (9-20) mg/dL Creatinine 1.01 (0.66-1.25) mg/dL Glucose 152 H (74-99) mg/dL Calcium 9.8 (8.4-10.2) mg/dL Total Bilirubin 0.7 (0.2-1.3) mg/dL AST 29 (17-59) U/L ALT 29 (21-72) U/L Alkaline Phosphatase 103 (38-126) U/L Total Protein 6.8 (6.3-8.2) g/dL Albumin 4.1 (3.5-5.0) g/dL - Imaging Chest x-ray: report reviewed, image reviewed CT scan - chest: report reviewed, image reviewed Assessment and Plan (1) Hyperlipidemia Current Visit: Yes Status: Chronic Code(s): E78.5 - HYPERLIPIDEMIA, UNSPECIFIED SNOMED Code(s): 38322651 (2) Schizophrenia Current Visit: Yes Status: Chronic Code(s): F20.9 - SCHIZOPHRENIA, UNSPECIFIED SNOMED Code(s): 41867547 (3) Tobacco dependence Current Visit: Yes Status: Chronic Code(s): F17.200 - NICOTINE DEPENDENCE, UNSPECIFIED, UNCOMPLICATED SNOMED Code(s): 88414422 (4) Enlarged thyroid Current Visit: Yes Status: Acute Code(s): E04.9 - NONTOXIC GOITER, UNSPECIFIED SNOMED Code(s): 9659077 (5) Dyspnea Current Visit: Yes Status: Acute Code(s): R06.00 - DYSPNEA, UNSPECIFIED SNOMED Code(s): 024355615 Plan: The patient was seen and examined. Chart/diagnostics were reviewed. Discussion was had between Dr. Willis and Dr. KASSIE Camejo. Patient will need general surgery consult for thyroidectomy. We will be on standby if there are any complications or surgical resection extends into the mediastinum. Medical management per primary care service. Encourage smoking cessation. Thank you Dr. Camejo for this consult. We will follow with you. Time with Patient: Greater than 30
[2018-01-08 17:12] LABS: Glucose,Whole Blood 140 mg/dL (75-99)
[2018-01-08] MEDS: AZITHROMYCIN 500 MG TAB PO SCH (20:53)
[2018-01-08] MEDS: MONTELUKAST 10 MG TAB PO SCH (20:53)
[2018-01-08] MEDS: FAMOTIDINE 20 MG TAB PO SCH (20:54)
[2018-01-08 21:00] LABS: Glucose,Whole Blood 186 mg/dL (75-99)
[2018-01-09] MEDS: IPRATROPIUM-ALBUTEROL 3 ML NEB INHALATION SCH ×7 (00:19→23:11)
[2018-01-09] MEDS: methylPREDNISolone SOD SUCCI 125 MG/2 ML VIAL IV SCH ×4 (00:22→23:38)
--- NOTE | 2018-01-09 05:52 | PN ---
PROGRESS NOTE SUBJECTIVE: A 67-year-old white male with CAT scan of the chest shows thoracic aortic aneurysms, mass obstructing possibly the esophagus in the thyroid area. Ultrasound has been ordered, which shows a 5 cm mass which surgical intervention by surgery will be needed. CARDIOVASCULAR S1, S2. LUNGS: Clear. GI: Soft. HEMATOLOGY: Negative Homans. PSYCH: Fair mood and affect. ASSESSMENT: 1. Chronic obstructive pulmonary disease exacerbation. 2. Thyroid mass, needs surgical cure due to dysphagia and pressing on the food pipe. Please see further orders. Continue with the medications for COPD. MMODL / IJN: [id number] /
[2018-01-09 07:34] LABS: Glucose,Whole Blood 144 mg/dL (75-99)
[2018-01-09] MEDS: HEPARIN SODIUM,PORCINE 5,000 UNIT/ML 1 ML VIAL SQ SCH ×2 (08:01→20:23)
[2018-01-09] MEDS: HALOPERIDOL 0.5 MG TAB PO SCH ×2 (08:01→20:23)
[2018-01-09] MEDS: BUDESONIDE 0.5 MG/2 ML NEBU INHALATION SCH ×2 (09:07→20:56)
--- NOTE | 2018-01-09 10:54 | P.PN ---
Subjective Progress Note Date: 01/09/18 HPI: This is a 67-year-old male who presented to [facility] on 2017. He had been coughing for approximately 2-3 weeks, had been walking outside and subsequently became short of breath. He was seen in the ER after he was brought in by EMS for further evaluation and treatment. He had been coughing up some yellowish phlegm and had some low chest pain as well. He does have a past medical history positive for hyperlipidemia, hypertension, schizophrenia, hernia repair and anxiety. Patient is also a current every day smoker. Denies any alcohol use The patient did have a CT of the chest which did show a probable substernal goiter, consider echocardiogram for possible left ventricular hypertrophy, consider subaortic stenosis, coronary artery calcifications, bronchitis, probable basilar scarring. Interval history: 01/08/2018patient is being seen examined and evaluated on rounds. Patient did have a CT of the soft tissue of the neck without contrast which did reveal enlarged and heterogeneous thyroid gland with substernal extension creating rightward tracheal deviation, fine needle aspiration could be performed of the 5.7 cm left thyroid nodule on the prior ultrasound that was noted, also moderate perinasal sinus disease was noted. Patient also had an echocardiogram which did reveal an EF of 60-65% RVSP was 34.73. Consults replace for cardio thoracic as well as Gen. surgery appreciate recommendations from both. Patient' s white count today is 22.5. Sputum and blood cultures are pending. Patient is afebrile no further complaints. Is on room air. Continues to have shortness of breath with exertion and activity and a productive cough. 01/09/18- patient is being seen examined and evaluated today on rounds. He is resting up in bed on room air. Does have shortness of breath with exertion and activity however breathing treatments seem to be helping. He has been tolerating his diet. Awaiting recommendations from general surgery related to his goiter. He is afebrile, no overnight events, no further complaints. All labs and reports reviewed Objective - Vital Signs Vital signs: Vital Signs Temp 97.1 F L 01/09/18 07:38 Pulse 80 01/09/18 07:38 Resp 18 01/09/18 08:06 BP 129/79 01/09/18 07:38 Pulse Ox 97 01/09/18 07:38 Intake & Output 01/08/18 01/09/18 01/09/18 18:59 06:59 18:59 Intake Total 600 100 Balance 600 100 Weight 82 kg Intake: Oral 600 100 Other: Voiding Method Toilet Toilet # Voids 2 0 - Exam GENERAL EXAM: Alert, active, comfortable in no apparent distress. HEAD: Normocephalic. EYES: Normal reaction of pupils, equal size. NOSE: Clear with pink turbinates. THROAT: No erythema or exudates. NECK: No masses, no JVD. CHEST: No chest wall deformity. LUNGS: Equal air entry did have some upper airway wheezing, likely related to goiter, airway obstruction CVS: S1 and S2 normal with short systolic mumurs, regular rhythm. ABDOMEN: No hepatosplenomegaly, normal bowel sounds, no guarding or rigidity. EXTREMITIES: No edema noted, pedal pulses palpable. CENTRAL NERVOUS SYSTEM: No focal deficits, tone is normal in all 4 extremities. - Labs CBC & Chem 7: 01/08/18 08:34 01/08/18 08:34 Labs: Abnormal Lab Results - Last 24 Hours (Table) 01/08/18 01/08/18 01/08/18 Range/Units 12:09 17:09 20:47 POC Glucose (mg/dL) 171 H 140 H 186 H (75-99) mg/dL 01/09/18 Range/Units 07:27 POC Glucose (mg/dL) 144 H (75-99) mg/dL Microbiology - Last 24 Hours (Table) 01/07/18 06:22 Gram Stain - Final Sputum Sputum Culture - Final 01/06/18 18:22 Blood Culture - Preliminary Blood No Growth after 48 hours Assessment and Plan Assessment: Assessment Acute exacerbation of COPD Acute exacerbation of asthma baseline asthma status unknown Possibly secondary bacterial infection due to leukocytosis, tracheobronchitis Substernal goiter versus other etiology Possible valvular heart disease Plan Medications have been reviewed and will be continued as ordered. Echocardiogram reviewed CT of the neck reviewed Continue with IV steroid taper Continue with antibiotics and Singulair Incentive spirometer Appreciate recommendations from consults Continue with pulmonary hygiene, coughing and deep breathing exercises, and supportive care. Supplemental oxygen to maintain oxygen saturations of 92% or better. Continue nebulizer treatments. GI and DVT prophylaxis. We will continue to monitor labs/results and adjust treatment as necessary. Further recommendations pending. I, the signing physician performed an examination of the patient, discussed and directed their management with the nurse practitioner. I have reviewed the nurse practitioner's note and agree with the documented findings, orders and plan of care.
[2018-01-09 11:34] LABS: Glucose,Whole Blood 186 mg/dL (75-99)
--- NOTE | 2018-01-09 15:26 | P.GSCN ---
History of Present Illness Consult date: 01/09/18 Reason for Consult: Goiter and thyroid nodule History of present illness: The patient's a 67-year-old man who presented to the emergency department with cough for 2-3 weeks. Complains of sputum and fever. He had a CT scan of the chest performed in the emergency department to rule out pulmonary embolism and a substernal goiter was seen. This was subsequently worked up with a computed tomography scan of the neck and ultrasound of the neck. The patient himself is not a very good historian. He thinks his had some thyroid problems in the past. He is not sure if his had any previous imaging or lab work done. Doesn' t believe these had any radiation. Doesn't think there is any family history of thyroid cancer. Complains mainly of cough and some irritation in his neck. The irritation is worse with stress. Review of Systems - Constitutional Reports as per HPI - Psychiatric Reports as per HPI Past Medical History Past Medical History: Heart Failure, Hyperlipidemia, Hypertension Additional Past Medical History / Comment(s): Irregular heart rhythm 40 years ago per patient, CHF in 2003 (resolved per patient). History of Any Multi-Drug Resistant Organisms: None Reported Past Surgical History: Hernia Repair Additional Past Surgical History / Comment(s): BL cataracts w/ lens implants. Past Anesthesia/Blood Transfusion Reactions: No Reported Reaction Past Psychological History: Anxiety, Schizophrenia Smoking Status: Current some day smoker Past Alcohol Use History: Occasional Additional Past Alcohol Use History / Comment(s): Pt. reports drinking 1-2 glasses of beer or wine 1-2x a week. States he smokes a few cigars every day and will sometimes smoke cigarettes. Denies cocaine, heroin, marijuana, or opiate use/abuse. Lives at [facility]. Past Drug Use History: None Reported - Past Family History Mother Family Medical History: Unable to Obtain Father Family Medical History: Unable to Obtain Medications and Allergies Home Medications Medication Instructions Recorded Confirmed Type Omeprazole [PriLOSEC] 20 mg PO DAILY 04/08/14 01/07/18 History Haloperidol [Haldol] 1 mg PO BID #60 tab 04/22/14 01/07/18 Rx Lisinopril [Prinivil] 20 mg PO DAILY 01/06/18 01/07/18 History Chlorthalidone 25 mg PO DAILY 01/07/18 01/07/18 History Allergies Allergy/AdvReac Type Severity Reaction Status Date / Time laundry detergent Allergy Rash/Hives Uncoded 01/07/18 01:26 Surgical - Exam Osteopathic Statement: *. No significant issues noted on an osteopathic structural exam other than those noted in the History and Physical/Consult. Vital Signs Temp Pulse Resp BP 99.5 F 91 18 135/90 01/06/18 18:14 01/06/18 18:14 01/06/18 18:14 01/06/18 18:14 - General well developed, well nourished, no distress - Eyes normal ocular movement - ENT normal nares, normal mucosa - Neck Thyroid is not well palpated consistent with substernal location trachea midline, no lymphadectomy, no venous distension - Respiratory Active cough with a small amount of yellowish sputum production normal respiratory effort, clear to auscultation - Cardiovascular Rhythm: regular Results - Labs 01/08/18 08:34 01/08/18 08:34 Abnormal Lab Results - Last 24 Hours (Table) 01/08/18 01/08/18 01/09/18 Range/Units 17:09 20:47 07:27 POC Glucose (mg/dL) 140 H 186 H 144 H (75-99) mg/dL 01/09/18 Range/Units 11:26 POC Glucose (mg/dL) 186 H (75-99) mg/dL Microbiology - Last 24 Hours (Table) 01/07/18 06:22 Gram Stain - Final Sputum Sputum Culture - Final 01/06/18 18:22 Blood Culture - Preliminary Blood No Growth after 48 hours - Imaging Additional studies: CT and ultrasound were reviewed Assessment and Plan (1) Thyroid nodule Current Visit: Yes Status: Acute Code(s): E04.1 - NONTOXIC SINGLE THYROID NODULE SNOMED Code(s): 896648310 (2) Enlarged thyroid Current Visit: Yes Status: Acute Code(s): E04.9 - NONTOXIC GOITER, UNSPECIFIED SNOMED Code(s): 1100007 (3) Reactive airway disease Current Visit: Yes Status: Acute Code(s): J45.909 - UNSPECIFIED ASTHMA, UNCOMPLICATED SNOMED Code(s): 612388101307 (4) Schizophrenia Current Visit: Yes Status: Chronic Code(s): F20.9 - SCHIZOPHRENIA, UNSPECIFIED SNOMED Code(s): 66276117 Plan: The patient needs further workup for his thyroid enlargement a nodule. Thyroid lab work was ordered in the computer. Thyroid FNA can be performed as outpatient. FNA will be sent for cytology along with Affirma testing if there is any atypia seen and plain cytology. FNA would be safer once his cough has resolved. Performing an FNA with active cough can result in thyroid laceration and bleeding. I can see him in the office in 2-3 weeks with further recommendations to follow.
[2018-01-09 15:53] VITALS: RESP 16
[2018-01-09 16:59] LABS: T4, Free (Free Thyroxine) 2.34 ng/dL (0.78-2.19)
[2018-01-09 17:05] LABS: Glucose,Whole Blood 106 mg/dL (75-99)
[2018-01-09] MEDS: FAMOTIDINE 20 MG TAB PO SCH (20:22)
[2018-01-09] MEDS: AZITHROMYCIN 500 MG TAB PO SCH (20:22)
[2018-01-09] MEDS: MONTELUKAST 10 MG TAB PO SCH (20:23)
[2018-01-09 20:50] LABS: Glucose,Whole Blood 186 mg/dL (75-99)
[2018-01-10] MEDS: IPRATROPIUM-ALBUTEROL 3 ML NEB INHALATION SCH ×4 (03:18→15:50)
[2018-01-10] MEDS: BUDESONIDE 0.5 MG/2 ML NEBU INHALATION SCH (07:09)
[2018-01-10 07:23] LABS: Glucose,Whole Blood 123 mg/dL (75-99)
--- NOTE | 2018-01-10 07:42 | PN ---
PROGRESS NOTE He was seen by Surgery today for thyroid nodule, large, possibly obstructing the airway. Being treated for IV steroid reactive airway disease, schizophrenia. They want to do a fine thyroid biopsy as an outpatient. Will follow up as an outpatient for this. Possible discharge home in the morning. LUNGS: Scattered rhonchi and wheeze. HEMATOLOGY: Negative Homans. PSYCH: Fair mood and affect. MMODL / IJN: [id number] /
[2018-01-10] MEDS: HEPARIN SODIUM,PORCINE 5,000 UNIT/ML 1 ML VIAL SQ SCH (08:16)
[2018-01-10] MEDS: methylPREDNISolone SOD SUCCI 125 MG/2 ML VIAL IV SCH ×2 (08:16→16:11)
[2018-01-10] MEDS: HALOPERIDOL 0.5 MG TAB PO SCH (08:16)
[2018-01-10 09:56] LABS: Basophils % (A) 0 %; Eosinophils % (A) 0 %; HCT 41.2 % (39.0-53.0); HGB 13.6 gm/dL (13.0-17.5); Lymphocytes # (A) 0.5 k/uL (1.0-4.8); Lymphocytes % (A) 3 %; MCH 30.2 pg (25.0-35.0); MCHC 33.1 g/dL (31.0-37.0); MCV 91.3 fL (80.0-100.0); Mean Platelet Volume 7.1; Monocytes # (A) 0.6 k/uL (0-1.0); Monocytes % (A) 4 %; Neutrophils # (A) 14.4 k/uL (1.3-7.7); Neutrophils % (A) 93 %; Platelet Count 263 k/uL (150-450); RBC 4.52 m/uL (4.30-5.90); RDW 13.6 % (11.5-15.5); WBC 15.6 k/uL (3.8-10.6)
[2018-01-10 10:08] LABS: ALT 42 U/L (21-72); AST 35 U/L (17-59); Albumin 3.2 g/dL (3.5-5.0); Alkaline Phosphatase 64 U/L (38-126); Anion Gap 9 mmol/L; Blood Urea Nitrogen 30 mg/dL (9-20); Calcium 9.1 mg/dL (8.4-10.2); Carbon Dioxide 29 mmol/L (22-30); Chloride 99 mmol/L (98-107); Glucose 142 mg/dL (74-99); Potassium 4.8 mmol/L (3.5-5.1); Sodium 137 mmol/L (137-145); Total Bilirubin 0.5 mg/dL (0.2-1.3); Total Protein 5.7 g/dL (6.3-8.2)
[2018-01-10 12:01] LABS: Glucose,Whole Blood 119 mg/dL (75-99)
[2018-01-10 15:29] VITALS: BP 126/74; TEMP 97.8
[2018-01-10 16:03] VITALS: PULSE 80
--- NOTE | 2018-01-10 16:45 | PN ---
PROGRESS NOTE DATE OF SERVICE: 01/10/2018 Patient is a 67-year-old male who is seen lying in bed, is awake, alert, comfortable, off of any supplemental oxygen. He does state that his breathing is improving, although still feels very weak with a dry nonproductive cough. Patient is hemodynamically stable, afebrile, in no acute distress. Last temperature documented is 98.7, heart rate 80, respiratory rate 16, blood pressure 141/78, oxygen saturation 96% on room air. HEENT: Head is normocephalic, atraumatic. Neck is supple. LUNGS: Fair air entry and coarse expiratory wheeze. HEART: S1 and S2 are heard. Not tachycardic. Abdomen is soft. Bowel sounds are heard. EXTREMITIES: No edema. NEUROLOGIC: Patient is awake, alert. LABS: White count is 15.6, hemoglobin 13.6, hematocrit 41.2 with 263,000 platelets. Sodium is 137, potassium 4.8, chloride 99. CO2 is 29. Anion gap is 9. BUN is 30, creatinine 0.91, glucose 142, calcium 9.1. Total bilirubin is 0.5, AST is 35, ALT is 42, alkaline phosphatase 64, total protein 5.7. Albumin is 3.2. TSH drawn on 01/08 less than 0.015 with a free T4 of 2.34. No new imaging to review. IMPRESSION AT THIS TIME: 1. Chronic obstructive pulmonary disease with acute exacerbation. 2. Asthma with acute exacerbation. Baseline unknown. 3. Tracheobronchitis. 4. Substernal goiter with hyperthyroidism. 5. Pulmonary hypertension per echocardiogram. PLAN: Continue current medications, which have been reviewed. Patient should be referred to see an survey party chief upon discharge for treatment of the hyperthyroidism prior to possible thyroid surgery. Continue bronchodilators and aerosol steroids. Switch IV Solu- Medrol to p.o. prednisone. Continue to encourage incentive spirometry. Continue GI and DVT prophylaxis. Will follow patient closely with you, making further changes as necessary. MMODL / IJN: [id number] /
[2018-01-10 16:57] LABS: Glucose,Whole Blood 174 mg/dL (75-99)
[2018-01-10 18:55] LABS: Hemoglobin A1C 5.4 % (4.0-6.0)
[2018-01-11] MEDS ORDERED: predniSONE 20 MG TAB PO SCH (09:00)
== END 2018-01-10 18:15 | disposition home or self-care (01) | DRG 191 ==
LOC: EC 18:12 → EEVIPCON 18:12 → 4MS4W 19:39 → OBSVTOIN 01-08 19:22
PROVIDERS: ADMIT Family Medicine; ATTEND Family Medicine
DX: J44.1 Chronic obstructive pulmonary disease with (acute) exacerbation (principal); E87.2 Acidosis; J40 Bronchitis, not specified as acute or chronic; E05.00 Thyrotoxicosis with diffuse goiter without thyrotoxic crisis or storm; E78.5 Hyperlipidemia, unspecified; F17.200 Nicotine dependence, unspecified, uncomplicated; F20.9 Schizophrenia, unspecified; I11.0 Hypertensive heart disease with heart failure; I27.20 Pulmonary hypertension, unspecified; I50.9 Heart failure, unspecified; I71.9 Aortic aneurysm of unspecified site, without rupture; R13.10 Dysphagia, unspecified; Z79.899 Other long term (current) drug therapy; Z98.42 Cataract extraction status, left eye; Z98.41 Cataract extraction status, right eye; Z96.1 Presence of intraocular lens
CPT/HCPCS: 36415; 70490; 71046; 71275; 76536; 80053; 82550; 82553; 83036; 83605; 83735; 83880; 84436; 84439; 84443; 84484; 85025; 85610; 85730; 87040; 87070; 87205; 93005; 93306; 94640; 96361; 96374; 99285

== ENCOUNTER 2018-02-06 11:46 | Day surgery (SDC) | payer MEDICARE ==
[2018-02-06 12:15] VITALS: PULSE 85; RESP 18; TEMP 97.6
[2018-02-06 14:32] VITALS: BP 115/74
--- NOTE | 2018-02-06 16:14 | US ---
EXAMINATION TYPE: US FNA thyroid DATE OF EXAM: 02/06/2018 COMPARISON: NONE HISTORY: Thyroid nodule, E04.1 Maximal barrier technique was utilized. Ultrasound using sterile technique. The skin overlying the no dule was localized with ultrasound and the overlying skin prepped and draped. Lidocaine used for loca l anesthesia. 5 passes with a 25-gauge needle were made into the nodule under ultrasound guidance. As pirate specimen submitted to cytology. Following the procedure hemostasis achieved. No immediate comp lication IMPRESSION: Status post ultrasound-guided fine-needle aspiration of left thyroid nodule, pathology pe nding.
== END 2018-02-06 14:00 | disposition home or self-care (01) ==
LOC: RADPROMAIN 11:46
PROVIDERS: ATTEND Surgery
DX: E04.1 Nontoxic single thyroid nodule (principal)
CPT/HCPCS: 10022; 76942; 88173; 88305

== ENCOUNTER 2018-03-08 08:32 | Day surgery (SDC) | payer MEDICARE ==
[2018-03-08 09:17] VITALS: RESP 16
[2018-03-08 11:26] VITALS: BP 152/82; PULSE 68
--- NOTE | 2018-03-08 13:52 | US ---
EXAMINATION TYPE: US FNA thyroid first lesion DATE OF EXAM: 03/08/2018 COMPARISON: NONE HISTORY: Thyroid nodule. Maximal barrier technique was utilized. After informed consent, skin overlying the left lobe thyroid lesion was localized with ultrasound and the overlying skin prepped and draped. Ultrasound was utili zed using sterile technique. Lidocaine was used for local anesthesia. Five passes with a 25-gauge ne edle were made into the nodule and aspirated specimen was submitted to cytology. Following the proce dure hemostasis achieved. No immediate complication. The patient discharged in stable condition. IMPRESSION: STATUS POST ULTRASOUND GUIDED FINE NEEDLE ASPIRATION OF THYROID NODULE, PATHOLOGY IS PEND ING. THIS PROCEDURE WAS PERFORMED BY THE UNDERSIGNED.
== END 2018-03-08 10:45 | disposition home or self-care (01) ==
LOC: RADPROMAIN 08:32
PROVIDERS: ATTEND Surgery
DX: E04.1 Nontoxic single thyroid nodule (principal)
CPT/HCPCS: 10005; 76942; 88173; 88305

== ENCOUNTER 2019-04-25 17:55 | Emergency (ER) | payer MEDICARE ==
[2019-04-25 18:01] VITALS: RESP 18; TEMP 97.4
[2019-04-25] MEDS ORDERED: SODIUM CHLORIDE 0.9% 1,000 ML IV STA (18:19)
--- NOTE | 2019-04-25 18:30 | ED ---
Weakness HPI - General Source: patient Mode of arrival: ambulatory Limitations: no limitations <Zuhair Adams - Last Filed: 04/25/19 20:07> <Patrice Esquivel - Last Filed: 04/25/19 21:30> - General Chief complaint: Weakness Stated complaint: weakness Time Seen by Provider: 04/25/19 18:03 - History of Present Illness Initial comments: Patient is 69-year-old male presenting to emergency Department with chief compl aint of weakness. Patient states he was brought into the ED by his friend who picked him up at the [facility], place for [facility]. His friend states the patient has a legal guardian who is currently not with him. Patient lives in a boarding house. According to the friend, the patient has some type of mental illness. Patient keeps on rambling. States he has weakness that is related to stress. States the stress is increased because he is "talking too much." States that whenever his stress levels are down, the weakness goes away. Patient does have a mild slur when speaking. According to his friend, this is his baseline. Patient denies chest pain, shortness of breath but does report a cough. States the cough is on been ongoing for the past 2-3 weeks. States he is a current smoker. Denies fever chills at home. (Zuhair Adams) - Related Data Home Medications Medication Instructions Recorded Confirmed Omeprazole [PriLOSEC] 20 mg PO DAILY 04/08/14 02/14/18 Lisinopril [Prinivil] 20 mg PO DAILY 01/06/18 02/14/18 Chlorthalidone 25 mg PO DAILY 01/07/18 02/14/18 Haloperidol [Haldol] 1 mg PO BID 02/14/18 02/14/18 Previous Rx's Medication Instructions Recorded Amoxicillin/Potassium Clav 1 tab PO Q12HR #20 tab 04/25/19 [Augmentin 875-125 Tablet] Guaifenesin/Dextromethorphan 1 each PO BID #30 tab 04/25/19 [Mucinex Dm ER 1,200-60 mg Tab] Allergies Allergy/AdvReac Type Severity Reaction Status Date / Time laundry detergent Allergy Rash/Hives Uncoded 04/25/19 18:01 Review of Systems ROS Other: All systems not noted in ROS Statement are negative. <Zuhair Adams - Last Filed: 04/25/19 20:07> ROS Other: All systems not noted in ROS Statement are negative. <AlvinPatrice - Last Filed: 04/25/19 21:30> ROS Statement: Those systems with pertinent positive or pertinent negative responses have been documented in the HPI. Past Medical History Past Medical History: Heart Failure, Hyperlipidemia, Hypertension Additional Past Medical History / Comment(s): recent lung infection,Irregular heart rhythm 40 years ago per patient, CHF in 2003 (resolved per patient),thyroid bx History of Any Multi-Drug Resistant Organisms: None Reported Past Surgical History: Hernia Repair Additional Past Surgical History / Comment(s): BL cataracts w/ lens implants. Past Anesthesia/Blood Transfusion Reactions: No Reported Reaction Past Psychological History: Anxiety, Schizophrenia Smoking Status: Current some day smoker Past Alcohol Use History: Occasional Past Drug Use History: None Reported - Past Family History Mother Family Medical History: Cancer Additional Family Medical History / Comment(s): ovarian Father Family Medical History: No Reported History <AngieZuhair - Last Filed: 04/25/19 20:07> General Exam Limitations: no limitations General appearance: alert, in no apparent distress Head exam: Present: atraumatic, normocephalic, normal inspection Eye exam: Present: normal appearance Pupils: Present: normal accommodation ENT exam: Present: normal exam, normal oropharynx Neck exam: Present: normal inspection, full ROM Respiratory exam: Present: normal lung sounds bilaterally. Absent: respiratory distress, wheezes, rales Cardiovascular Exam: Present: regular rate, normal rhythm, normal heart sounds Extremities exam: Present: normal inspection, full ROM Back exam: Present: normal inspection, full ROM Neurological exam: Present: alert, oriented X3 Psychiatric exam: Present: normal affect, normal mood Skin exam: Present: warm, dry, intact, normal color <AngieZuhair - Last Filed: 04/25/19 20:07> Course Vital Signs 04/25/19 04/25/19 17:57 19:00 Temperature 97.4 F L Pulse Rate 68 67 Respiratory 18 18 Rate Blood Pressure 125/84 120/79 O2 Sat by Pulse 98 98 Oximetry EKG Findings - EKG Results: EKG: interpreted by ERMD, sinus rhythm (EKG showed sinus rhythm with blocked PACs rate 70. Interval 160 QRS duration 14 QT since QTC 46/[address]-T wa ve changes) <AlvinPatrice - Last Filed: 04/25/19 21:30> Medical Decision Making - Lab Data Result diagrams: 04/25/19 18:32 04/25/19 18:32 <Zuhair Adams - Last Filed: 04/25/19 20:07> - Lab Data Result diagrams: 04/25/19 18:32 04/25/19 18:32 <Patrice Esquivel - Last Filed: 04/25/19 21:30> - Medical Decision Making Patient is a 69 -year-old male with history of COPD and multiple psychiatric conditions presenting to emergency Department with a chief complaint of weakness. Patient is homeless and lives in a boarding house. He presents to the ED with his friend states the patient is acting at his baseline which includes excessive talking and slightly slurred speech. CBC and UA are unremarkable. CMP does show mild hyponatremia which will be corrected with fluids. Patient was given fluids in the ED on reevaluation patient reports improvement in symptoms. Chest x-ray does indicate right basilar atelectasis. Patient is a smoker. Patient will be started on antibiotics. Patient is safe to go home with his friend. Return parameters were thoroughly discussed with patient and his friend were understanding and agreeable. Case discussed with physician. (Zuhair Adams) - Lab Data Lab Results 04/25/19 04/25/19 04/25/19 Range/Units 18:32 18:32 18:32 WBC 9.9 (3.8-10.6) k/uL RBC 4.72 (4.30-5.90) m/uL Hgb 14.0 (13.0-17.5) gm/dL Hct 41.2 (39.0-53.0) % MCV 87.3 (80.0-100.0) fL MCH 29.7 (25.0-35.0) pg MCHC 34.0 (31.0-37.0) g/dL RDW 13.4 (11.5-15.5) % Plt Count 288 (150-450) k/uL Neutrophils % 74 % Lymphocytes % 12 % Monocytes % 7 % Eosinophils % 4 % Basophils % 0 % Neutrophils # 7.3 (1.3-7.7) k/uL Lymphocytes # 1.2 (1.0-4.8) k/uL Monocytes # 0.7 (0-1.0) k/uL Eosinophils # 0.4 (0-0.7) k/uL Basophils # 0.0 (0-0.2) k/uL PT 10.5 (9.0-12.0) sec INR 1.0 (<1.2) APTT 25.4 (22.0-30.0) sec Sodium 129 L (137-145) mmol/L Potassium 3.7 (3.5-5.1) mmol/L Chloride 89 L (98-107) mmol/L Carbon Dioxide 30 (22-30) mmol/L Anion Gap 10 mmol/L BUN 17 (9-20) mg/dL Creatinine 1.06 (0.66-1.25) mg/dL Est GFR (CKD-EPI)AfAm 84 (>60 ml/min/1.73 sqM) Est GFR (CKD-EPI)NonAf 73 (>60 ml/min/1.73 sqM) Glucose 110 H (74-99) mg/dL Calcium 9.1 (8.4-10.2) mg/dL Total Bilirubin 0.5 (0.2-1.3) mg/dL AST 23 (17-59) U/L ALT 13 (4-49) U/L Alkaline Phosphatase 74 (38-126) U/L Troponin I (0.000-0.034) ng/mL Total Protein 6.5 (6.3-8.2) g/dL Albumin 3.9 (3.5-5.0) g/dL Urine Color Urine Appearance (Clear) Urine pH (5.0-8.0) Ur Specific Irving (1.001-1.035) Urine Protein (Negative) Urine Glucose (UA) (Negative) Urine Ketones (Negative) Urine Blood (Negative) Urine Nitrite (Negative) Urine Bilirubin (Negative) Urine Urobilinogen (<2.0) mg/dL Ur Leukocyte Esterase (Negative) 04/25/19 04/25/19 Range/Units 18:32 19:34 WBC (3.8-10.6) k/uL RBC (4.30-5.90) m/uL Hgb (13.0-17.5) gm/dL Hct (39.0-53.0) % MCV (80.0-100.0) fL MCH (25.0-35.0) pg MCHC (31.0-37.0) g/dL RDW (11.5-15.5) % Plt Count (150-450) k/uL Neutrophils % % Lymphocytes % % Monocytes % % Eosinophils % % Basophils % % Neutrophils # (1.3-7.7) k/uL Lymphocytes # (1.0-4.8) k/uL Monocytes # (0-1.0) k/uL Eosinophils # (0-0.7) k/uL Basophils # (0-0.2) k/uL PT (9.0-12.0) sec INR (<1.2) APTT (22.0-30.0) sec Sodium (137-145) mmol/L Potassium (3.5-5.1) mmol/L Chloride (98-107) mmol/L Carbon Dioxide (22-30) mmol/L Anion Gap mmol/L BUN (9-20) mg/dL Creatinine (0.66-1.25) mg/dL Est GFR (CKD-EPI)AfAm (>60 ml/min/1.73 sqM) Est GFR (CKD-EPI)NonAf (>60 ml/min/1.73 sqM) Glucose (74-99) mg/dL Calcium (8.4-10.2) mg/dL Total Bilirubin (0.2-1.3) mg/dL AST (17-59) U/L ALT (4-49) U/L Alkaline Phosphatase (38-126) U/L Troponin I <0.012 (0.000-0.034) ng/mL Total Protein (6.3-8.2) g/dL Albumin (3.5-5.0) g/dL Urine Color Yellow Urine Appearance Clear (Clear) Urine pH 6.0 (5.0-8.0) Ur Specific Irving 1.008 (1.001-1.035) Urine Protein Negative (Negative) Urine Glucose (UA) Negative (Negative) Urine Ketones Negative (Negative) Urine Blood Negative (Negative) Urine Nitrite Negative (Negative) Urine Bilirubin Negative (Negative) Urine Urobilinogen <2.0 (<2.0) mg/dL Ur Leukocyte Esterase Negative (Negative) Disposition Is patient prescribed a controlled substance at d/c from ED?: No Time of Disposition: 20:06 <Zuhair Adams - Last Filed: 04/25/19 20:07> <Patrice Esquivel - Last Filed: 04/25/19 21:30> Clinical Impression: Cough, Atelectasis of right lung Disposition: HOME SELF-CARE Condition: Stable Instructions (If sedation given, give patient instructions): Atelectasis (ED) Additional Instructions: Take prescribed medication as directed. Follow with primary care. Return to emergency department if symptoms worsen. Prescriptions: Amoxicillin/Potassium Clav [Augmentin 875-125 Tablet] 1 tab PO Q12HR #20 tab Guaifenesin/Dextromethorphan [Mucinex Dm ER 1,200-60 mg Tab] 1 each PO BID #30 tab Referrals: Martin Vieyra MD [Primary Care Provider] - 1-2 days
[2019-04-25 18:41] LABS: Basophils % (A) 0 %; Eosinophils # (A) 0.4 k/uL (0-0.7); Eosinophils % (A) 4 %; HCT 41.2 % (39.0-53.0); Lymphocytes # (A) 1.2 k/uL (1.0-4.8); Lymphocytes % (A) 12 %; MCH 29.7 pg (25.0-35.0); MCV 87.3 fL (80.0-100.0); Mean Platelet Volume 7.5; Monocytes # (A) 0.7 k/uL (0-1.0); Monocytes % (A) 7 %; Neutrophils # (A) 7.3 k/uL (1.3-7.7); Neutrophils % (A) 74 %; Platelet Count 288 k/uL (150-450); RBC 4.72 m/uL (4.30-5.90); RDW 13.4 % (11.5-15.5); WBC 9.9 k/uL (3.8-10.6)
[2019-04-25 18:50] LABS: Partial Thromboplastin Time 25.4 sec (22.0-30.0); Prothrombin Time 10.5 sec (9.0-12.0)
[2019-04-25 18:55] LABS: Albumin 3.9 g/dL (3.5-5.0); Calcium 9.1 mg/dL (8.4-10.2); Potassium 3.7 mmol/L (3.5-5.1); Total Bilirubin 0.5 mg/dL (0.2-1.3); Total Protein 6.5 g/dL (6.3-8.2)
--- NOTE | 2019-04-25 18:56 | XR ---
EXAMINATION TYPE: XR chest 2V DATE OF EXAM: 04/25/2019 COMPARISON: Chest x-ray and CT January 15, 2018 HISTORY: Weakness TECHNIQUE: Frontal and lateral views of the chest are obtained. FINDINGS: Overlying EKG leads are present. There is new left basilar linear scarring and/or atelecta sis laterally. Right lung is clear. No pleural effusion or pneumothorax noted. The cardiac silhouette size remains within normal limits with ectatic thoracic aorta. The osseous structures are intact. IMPRESSION: New lateral right basilar linear atelectasis.
[2019-04-25 19:02] VITALS: BP 120/79; PULSE 67
[2019-04-25 19:50] LABS: Appearance,Urine Clear (Clear); Bilirubin,Urine Negative (Negative); Blood,Urine Negative (Negative); Color,Urine Yellow; Glucose,Urine (UA) Negative (Negative); Ketones,Urine Negative (Negative); Leukocyte Esterase,Urine Negative (Negative); Nitrite,Urine Negative (Negative); Protein,Urine Negative (Negative); Specific Gravity,Urine 1.008 (1.001-1.035); Urobilinogen,Urine <2.0 mg/dL (<2.0)
[2019-04-25] MEDS ORDERED: cefTRIAXone IN SWFI 1,000 MG/10 ML SYRINGE IVP STA (20:07)
== END 2019-04-25 20:34 | disposition home or self-care (01) ==
LOC: EC 17:55
DX: J98.11 Atelectasis (principal); E87.1 Hypo-osmolality and hyponatremia; R53.1 Weakness; Z59.0 Homelessness; R47.81 Slurred speech; F43.9 Reaction to severe stress, unspecified; I11.0 Hypertensive heart disease with heart failure; I50.9 Heart failure, unspecified; F20.9 Schizophrenia, unspecified; F41.9 Anxiety disorder, unspecified; F17.200 Nicotine dependence, unspecified, uncomplicated; Z91.048 Other nonmedicinal substance allergy status; Z79.899 Other long term (current) drug therapy; Z86.19 Personal history of other infectious and parasitic diseases
CPT/HCPCS: 36415; 80053; 84484; 85025; 85610; 85730; 81003; 71046; 99285; 96374; 96361; J0696

== ENCOUNTER 2019-06-20 14:11 | Emergency (ER) | payer MEDICARE ==
[2019-06-20 14:32] VITALS: BP 136/80; PULSE 68; RESP 18; TEMP 98
--- NOTE | 2019-06-20 14:57 | ED ---
General Adult HPI - General Chief complaint: Psychiatric Symptoms Stated complaint: Med Refill Time Seen by Provider: 06/20/19 14:38 Source: patient, RN notes reviewed Mode of arrival: ambulatory Limitations: altered mental status - History of Present Illness Initial comments: Patient is a pleasant 69-year-old male presenting to the emergency Department with complaints of his thoughts not working right. Patient states he has had similar symptoms previously and has done well with Haldol and Risperdal. Patient is a poor historian and has difficulty providing history. Patient denies suicidal or homicidal thoughts. Patient denies hallucinations. - Related Data Home Medications Medication Instructions Recorded Confirmed Omeprazole [PriLOSEC] 20 mg PO DAILY 04/08/14 02/14/18 Lisinopril [Prinivil] 20 mg PO DAILY 01/06/18 02/14/18 Chlorthalidone 25 mg PO DAILY 01/07/18 02/14/18 Haloperidol [Haldol] 1 mg PO BID 02/14/18 02/14/18 Previous Rx's Medication Instructions Recorded Amoxicillin/Potassium Clav 1 tab PO Q12HR #20 tab 04/25/19 [Augmentin 875-125 Tablet] Guaifenesin/Dextromethorphan 1 each PO BID #30 tab 04/25/19 [Mucinex Dm ER 1,200-60 mg Tab] Allergies Allergy/AdvReac Type Severity Reaction Status Date / Time laundry detergent Allergy Rash/Hives Uncoded 06/20/19 14:32 Review of Systems ROS Statement: Those systems with pertinent positive or pertinent negative responses have been documented in the HPI. ROS Other: All systems not noted in ROS Statement are negative. Constitutional: Denies: fever Eyes: Denies: eye pain ENT: Denies: ear pain Respiratory: Denies: cough Cardiovascular: Denies: chest pain Endocrine: Denies: fatigue Gastrointestinal: Denies: abdominal pain Genitourinary: Denies: dysuria Musculoskeletal: Denies: back pain Skin: Denies: rash Psychiatric: Reports: as per HPI Past Medical History Past Medical History: Heart Failure, Hyperlipidemia, Hypertension Additional Past Medical History / Comment(s): recent lung infection,Irregular heart rhythm 40 years ago per patient, CHF in 2003 (resolved per patient),thyroid bx History of Any Multi-Drug Resistant Organisms: None Reported Past Surgical History: Hernia Repair Additional Past Surgical History / Comment(s): BL cataracts w/ lens implants. Past Anesthesia/Blood Transfusion Reactions: No Reported Reaction Past Psychological History: Anxiety, Schizophrenia Smoking Status: Current some day smoker Past Alcohol Use History: Occasional Past Drug Use History: None Reported - Past Family History Mother Family Medical History: Cancer Additional Family Medical History / Comment(s): ovarian Father Family Medical History: No Reported History General Exam Limitations: altered mental status General appearance: alert, in no apparent distress Head exam: Present: normocephalic Eye exam: Present: normal appearance, PERRL Neck exam: Present: normal inspection Respiratory exam: Present: normal lung sounds bilaterally Cardiovascular Exam: Present: regular rate, normal rhythm GI/Abdominal exam: Present: soft. Absent: tenderness Extremities exam: Present: normal inspection Neurological exam: Present: alert Expanded Focused psych exam: Present: flight of ideas Skin exam: Present: normal color, other (Tobacco stained fingers) Course Vital Signs 06/20/19 14:25 Temperature 98 F Pulse Rate 68 Respiratory 18 Rate Blood Pressure 136/80 O2 Sat by Pulse 98 Oximetry Medical Decision Making - Medical Decision Making Patient was encouraged to have discussion with mental health worker who could talk to his psychiatrist's for him. Patient refuses further evaluation and refuses to stay. Patient denies suicidal or homicidal thoughts. Guardian will be contacted by nursing staff prior to patient being allowed to leave. Disposition Clinical Impression: Chronic schizophrenia Disposition: Left Against Medical Advice Instructions (If sedation given, give patient instructions): Schizophrenia (ED) Additional Instructions: Please follow-up with [facility] and primary care physician in the next day or 2 for recheck. Return for worsening problems, thoughts of harming yourself or others, worsening symptoms or other concerns. Is patient prescribed a controlled substance at d/c from ED?: No Referrals: Martin Vieyra MD [Primary Care Provider] - 1-2 days Time of Disposition: 15:14
== END 2019-06-20 15:18 | disposition left against medical advice (07) ==
LOC: EC 14:11
DX: F20.9 Schizophrenia, unspecified (principal); Z76.0 Encounter for issue of repeat prescription; I11.0 Hypertensive heart disease with heart failure; I50.9 Heart failure, unspecified; F17.200 Nicotine dependence, unspecified, uncomplicated; Z79.899 Other long term (current) drug therapy; Z91.048 Other nonmedicinal substance allergy status; Z53.29 Procedure and treatment not carried out because of patient's decision for other reasons
CPT/HCPCS: 99281

== ENCOUNTER 2019-07-04 13:56 | Emergency (ER) | payer MEDICARE ==
[2019-07-04 14:15] VITALS: BP 156/72; PULSE 63; RESP 18; TEMP 97.9
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
== END 2019-07-04 16:07 | disposition home or self-care (01) ==
LOC: EC 13:56
DX: S00.83XA Contusion of other part of head, initial encounter (principal); S05.11XA Contusion of eyeball and orbital tissues, right eye, initial encounter; I11.0 Hypertensive heart disease with heart failure; I50.9 Heart failure, unspecified; E78.5 Hyperlipidemia, unspecified; F20.9 Schizophrenia, unspecified; F17.200 Nicotine dependence, unspecified, uncomplicated; Z79.899 Other long term (current) drug therapy; Z91.048 Other nonmedicinal substance allergy status; Y04.2XXA Assault by strike against or bumped into by another person, initial encounter
CPT/HCPCS: 70450; 70486; 72125; 99284

== ENCOUNTER 2019-09-30 15:22 | Emergency (ER) | payer MEDICARE ==
[2019-09-30 15:37] VITALS: TEMP 98.3
[2019-09-30] MEDS ORDERED: SODIUM CHLORIDE 0.9% 500 ML 500 ML IV ONE (15:43)
--- NOTE | 2019-09-30 16:07 | ED ---
General Adult HPI - General Chief complaint: Weakness Stated complaint: Weakness Time Seen by Provider: 09/30/19 15:30 Source: patient, RN notes reviewed, old records reviewed Mode of arrival: EMS Limitations: no limitations - History of Present Illness Initial comments: 69-year-old male presenting with generalized weakness. History is somewhat limited. Patient admits to alcohol consumption this morning. Additionally he states he has been taking his Haldol above the prescribed recommendation and is out of his Haldol. He is requesting Haldol administration the emergency department. He denies headache. Denies focal numbness or weakness. Reports generalized weakness and fatigue. Denies cough. Denies fever. Denies abdominal pain or vomiting. He states he had some indigestion approximately one week ago which is resolved at this time. No chest pain. No lower extremity pain or swelling. - Related Data Home Medications Medication Instructions Recorded Confirmed Omeprazole [PriLOSEC] 20 mg PO DAILY 04/08/14 09/30/19 lisinopriL [Prinivil] 20 mg PO DAILY 01/06/18 09/30/19 Chlorthalidone 25 mg PO DAILY 01/07/18 09/30/19 haloperidoL [Haldol] 1 mg PO BID 02/14/18 09/30/19 Allergies Allergy/AdvReac Type Severity Reaction Status Date / Time laundry detergent AdvReac Mild Rash/Hives Uncoded 09/30/19 18:12 Review of Systems ROS Statement: Those systems with pertinent positive or pertinent negative responses have been documented in the HPI. ROS Other: All systems not noted in ROS Statement are negative. Past Medical History Past Medical History: Heart Failure, Hyperlipidemia, Hypertension Additional Past Medical History / Comment(s): Irregular heart rhythm 40 years ago per patient, CHF in 2003 (resolved per patient),thyroid bx History of Any Multi-Drug Resistant Organisms: None Reported Past Surgical History: Hernia Repair Additional Past Surgical History / Comment(s): BL cataracts w/ lens implants. Past Anesthesia/Blood Transfusion Reactions: No Reported Reaction Past Psychological History: Anxiety, Schizophrenia Smoking Status: Current every day smoker Past Alcohol Use History: Occasional Past Drug Use History: None Reported - Past Family History Mother Family Medical History: Cancer Additional Family Medical History / Comment(s): ovarian Father Family Medical History: No Reported History General Exam Limitations: no limitations General appearance: alert, appears intoxicated Head exam: Present: atraumatic, normocephalic Eye exam: Present: normal appearance, PERRL ENT exam: Present: mucous membranes dry Neck exam: Present: normal inspection. Absent: tenderness, meningismus Respiratory exam: Present: normal lung sounds bilaterally. Absent: respiratory distress, wheezes Cardiovascular Exam: Present: regular rate, normal rhythm GI/Abdominal exam: Present: soft. Absent: distended, tenderness, guarding Extremities exam: Present: normal inspection, normal capillary refill. Absent: pedal edema Neurological exam: Present: alert. Absent: motor sensory deficit Psychiatric exam: Present: flat affect Skin exam: Present: warm, dry, intact. Absent: cyanosis, diaphoretic Course Vital Signs 09/30/19 15:24 Temperature 98.3 F Pulse Rate 52 L Respiratory 18 Rate Blood Pressure 120/87 O2 Sat by Pulse 94 L Oximetry EKG Findings - EKG Comments: EKG Findings:: EKG: Sinus rhythm with PAC, rate of 94, IL interval 168, QRS duration 98, QTC 470, no ST segment elevation. Medical Decision Making - Medical Decision Making 59-year-old male with fatigue. He is well-appearing with a nonfocal exam, stable vitals. He has been taking his Haldol by of the prescribed amount. Workup was initiated, chest x-ray negative for focal pneumonia or acute findings, normal CBC, normal CMP, negative troponin, nonischemic EKG. I did discuss this patient with his primary care physician Dr. 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 EPS was able to provide this patient with outpatient referrals. He is not suicidal or homicidal. He will be given a syringe so that he can take his oral had all as prescribed. He can have close outpatient follow-up with Dr. Vieyra. - Lab Data Result diagrams: 09/30/19 15:54 09/30/19 15:54 Lab Results 09/30/19 09/30/19 09/30/19 Range/Units 15:54 15:54 15:54 WBC 8.5 (3.8-10.6) k/uL RBC 4.83 (4.30-5.90) m/uL Hgb 14.3 (13.0-17.5) gm/dL Hct 43.1 (39.0-53.0) % MCV 89.4 (80.0-100.0) fL MCH 29.7 (25.0-35.0) pg MCHC 33.2 (31.0-37.0) g/dL RDW 13.5 (11.5-15.5) % Plt Count 206 (150-450) k/uL Neutrophils % 75 % Lymphocytes % 12 % Monocytes % 7 % Eosinophils % 3 % Basophils % 1 % Neutrophils # 6.4 (1.3-7.7) k/uL Lymphocytes # 1.1 (1.0-4.8) k/uL Monocytes # 0.6 (0-1.0) k/uL Eosinophils # 0.2 (0-0.7) k/uL Basophils # 0.1 (0-0.2) k/uL PT 10.2 (9.0-12.0) sec INR 1.0 (<1.2) APTT 23.8 (22.0-30.0) sec Sodium 134 L (137-145) mmol/L Potassium 3.7 (3.5-5.1) mmol/L Chloride 98 (98-107) mmol/L Carbon Dioxide 27 (22-30) mmol/L Anion Gap 9 mmol/L BUN 20 (9-20) mg/dL Creatinine 1.00 (0.66-1.25) mg/dL Est GFR (CKD-EPI)AfAm 90 (>60 ml/min/1.73 sqM) Est GFR (CKD-EPI)NonAf 78 (>60 ml/min/1.73 sqM) Glucose 91 (74-99) mg/dL Plasma Lactic Acid Aly (0.7-2.0) mmol/L Calcium 10.2 (8.4-10.2) mg/dL Magnesium 1.6 (1.6-2.3) mg/dL Total Bilirubin 0.7 (0.2-1.3) mg/dL AST 26 (17-59) U/L ALT 14 (4-49) U/L Alkaline Phosphatase 58 (38-126) U/L Troponin I (0.000-0.034) ng/mL Total Protein 6.3 (6.3-8.2) g/dL Albumin 4.0 (3.5-5.0) g/dL Urine Color Urine Appearance (Clear) Urine pH (5.0-8.0) Ur Specific [place] (1.001-1.035) Urine Protein (Negative) Urine Glucose (UA) (Negative) Urine Ketones (Negative) Urine Blood (Negative) Urine Nitrite (Negative) Urine Bilirubin (Negative) Urine Urobilinogen (<2.0) mg/dL Ur Leukocyte Esterase (Negative) Urine Opiates Screen (NotDetected) Ur Oxycodone Screen (NotDetected) Urine Methadone Screen (NotDetected) Ur Propoxyphene Screen (NotDetected) Ur Barbiturates Screen (NotDetected) U Tricyclic Antidepress (NotDetected) Ur Phencyclidine Scrn (NotDetected) Ur Amphetamines Screen (NotDetected) U Methamphetamines Scrn (NotDetected) U Benzodiazepines Scrn (NotDetected) Urine Cocaine Screen (NotDetected) U Marijuana (THC) Screen (NotDetected) Serum Alcohol <10 mg/dL 09/30/19 09/30/19 09/30/19 Range/Units 15:54 15:54 17:25 WBC (3.8-10.6) k/uL RBC (4.30-5.90) m/uL Hgb (13.0-17.5) gm/dL Hct (39.0-53.0) % MCV (80.0-100.0) fL MCH (25.0-35.0) pg MCHC (31.0-37.0) g/dL RDW (11.5-15.5) % Plt Count (150-450) k/uL Neutrophils % % Lymphocytes % % Monocytes % % Eosinophils % % Basophils % % Neutrophils # (1.3-7.7) k/uL Lymphocytes # (1.0-4.8) k/uL Monocytes # (0-1.0) k/uL Eosinophils # (0-0.7) k/uL Basophils # (0-0.2) k/uL PT (9.0-12.0) sec INR (<1.2) APTT (22.0-30.0) sec Sodium (137-145) mmol/L Potassium (3.5-5.1) mmol/L Chloride (98-107) mmol/L Carbon Dioxide (22-30) mmol/L Anion Gap mmol/L BUN (9-20) mg/dL Creatinine (0.66-1.25) mg/dL Est GFR (CKD-EPI)AfAm (>60 ml/min/1.73 sqM) Est GFR (CKD-EPI)NonAf (>60 ml/min/1.73 sqM) Glucose (74-99) mg/dL Plasma Lactic Acid Aly 1.4 (0.7-2.0) mmol/L Calcium (8.4-10.2) mg/dL Magnesium (1.6-2.3) mg/dL Total Bilirubin (0.2-1.3) mg/dL AST (17-59) U/L ALT (4-49) U/L Alkaline Phosphatase (38-126) U/L Troponin I <0.012 (0.000-0.034) ng/mL Total Protein (6.3-8.2) g/dL Albumin (3.5-5.0) g/dL Urine Color Light Yellow Urine Appearance Clear (Clear) Urine pH 6.5 (5.0-8.0) Ur Specific [place] 1.006 (1.001-1.035) Urine Protein Negative (Negative) Urine Glucose (UA) Negative (Negative) Urine Ketones Negative (Negative) Urine Blood Negative (Negative) Urine Nitrite Negative (Negative) Urine Bilirubin Negative (Negative) Urine Urobilinogen <2.0 (<2.0) mg/dL Ur Leukocyte Esterase Negative (Negative) Urine Opiates Screen (NotDetected) Ur Oxycodone Screen (NotDetected) Urine Methadone Screen (NotDetected) Ur Propoxyphene Screen (NotDetected) Ur Barbiturates Screen (NotDetected) U Tricyclic Antidepress (NotDetected) Ur Phencyclidine Scrn (NotDetected) Ur Amphetamines Screen (NotDetected) U Methamphetamines Scrn (NotDetected) U Benzodiazepines Scrn (NotDetected) Urine Cocaine Screen (NotDetected) U Marijuana (THC) Screen (NotDetected) Serum Alcohol mg/dL 09/30/19 Range/Units 17:25 WBC (3.8-10.6) k/uL RBC (4.30-5.90) m/uL Hgb (13.0-17.5) gm/dL Hct (39.0-53.0) % MCV (80.0-100.0) fL MCH (25.0-35.0) pg MCHC (31.0-37.0) g/dL RDW (11.5-15.5) % Plt Count (150-450) k/uL Neutrophils % % Lymphocytes % % Monocytes % % Eosinophils % % Basophils % % Neutrophils # (1.3-7.7) k/uL Lymphocytes # (1.0-4.8) k/uL Monocytes # (0-1.0) k/uL Eosinophils # (0-0.7) k/uL Basophils # (0-0.2) k/uL PT (9.0-12.0) sec INR (<1.2) APTT (22.0-30.0) sec Sodium (137-145) mmol/L Potassium (3.5-5.1) mmol/L Chloride (98-107) mmol/L Carbon Dioxide (22-30) mmol/L Anion Gap mmol/L BUN (9-20) mg/dL Creatinine (0.66-1.25) mg/dL Est GFR (CKD-EPI)AfAm (>60 ml/min/1.73 sqM) Est GFR (CKD-EPI)NonAf (>60 ml/min/1.73 sqM) Glucose (74-99) mg/dL Plasma Lactic Acid Aly (0.7-2.0) mmol/L Calcium (8.4-10.2) mg/dL Magnesium (1.6-2.3) mg/dL Total Bilirubin (0.2-1.3) mg/dL AST (17-59) U/L ALT (4-49) U/L Alkaline Phosphatase (38-126) U/L Troponin I (0.000-0.034) ng/mL Total Protein (6.3-8.2) g/dL Albumin (3.5-5.0) g/dL Urine Color Urine Appearance (Clear) Urine pH (5.0-8.0) Ur Specific [place] (1.001-1.035) Urine Protein (Negative) Urine Glucose (UA) (Negative) Urine Ketones (Negative) Urine Blood (Negative) Urine Nitrite (Negative) Urine Bilirubin (Negative) Urine Urobilinogen (<2.0) mg/dL Ur Leukocyte Esterase (Negative) Urine Opiates Screen Not Detected (NotDetected) Ur Oxycodone Screen Not Detected (NotDetected) Urine Methadone Screen Not Detected (NotDetected) Ur Propoxyphene Screen Not Detected (NotDetected) Ur Barbiturates Screen Not Detected (NotDetected) U Tricyclic Antidepress Not Detected (NotDetected) Ur Phencyclidine Scrn Not Detected (NotDetected) Ur Amphetamines Screen Not Detected (NotDetected) U Methamphetamines Scrn Not Detected (NotDetected) U Benzodiazepines Scrn Not Detected (NotDetected) Urine Cocaine Screen Not Detected (NotDetected) U Marijuana (THC) Screen Not Detected (NotDetected) Serum Alcohol mg/dL Disposition Clinical Impression: Schizophrenia Disposition: ADMITTED IP TO THIS [facility] Condition: Stable Is patient prescribed a controlled substance at d/c from ED?: No Referrals: Martin Vieyra MD [Primary Care Provider] - 1-2 days Decision to Admit Reason: Admit from EC Decision Date: 09/30/19 Decision Time: 18:37
[2019-09-30 16:08] LABS: Basophils # (A) 0.1 k/uL (0-0.2); Basophils % (A) 1 %; Eosinophils # (A) 0.2 k/uL (0-0.7); Eosinophils % (A) 3 %; HCT 43.1 % (39.0-53.0); HGB 14.3 gm/dL (13.0-17.5); Lymphocytes # (A) 1.1 k/uL (1.0-4.8); Lymphocytes % (A) 12 %; MCH 29.7 pg (25.0-35.0); MCHC 33.2 g/dL (31.0-37.0); MCV 89.4 fL (80.0-100.0); Mean Platelet Volume 7.7; Monocytes # (A) 0.6 k/uL (0-1.0); Monocytes % (A) 7 %; Neutrophils # (A) 6.4 k/uL (1.3-7.7); Neutrophils % (A) 75 %; Platelet Count 206 k/uL (150-450); RBC 4.83 m/uL (4.30-5.90); RDW 13.5 % (11.5-15.5); WBC 8.5 k/uL (3.8-10.6)
[2019-09-30 16:23] LABS: ALT 14 U/L (4-49); AST 26 U/L (17-59); African American GFR (CKD) 90 (>60 ml/min/1.73 sqM); Alcohol <10 mg/dL; Alkaline Phosphatase 58 U/L (38-126); Anion Gap 9 mmol/L; Blood Urea Nitrogen 20 mg/dL (9-20); Calcium 10.2 mg/dL (8.4-10.2); Carbon Dioxide 27 mmol/L (22-30); Chloride 98 mmol/L (98-107); Glucose 91 mg/dL (74-99); Magnesium 1.6 mg/dL (1.6-2.3); Non-African American GFR(CKD) 78 (>60 ml/min/1.73 sqM); Partial Thromboplastin Time 23.8 sec (22.0-30.0); Potassium 3.7 mmol/L (3.5-5.1); Prothrombin Time 10.2 sec (9.0-12.0); Sodium 134 mmol/L (137-145); Total Bilirubin 0.7 mg/dL (0.2-1.3); Total Protein 6.3 g/dL (6.3-8.2)
--- NOTE | 2019-09-30 16:25 | XR ---
EXAMINATION TYPE: XR chest 2V DATE OF EXAM: 09/30/2019 COMPARISON: 04/25/2019 INDICATION: Weakness TECHNIQUE: Frontal and lateral views of the chest are obtained. FINDINGS: The heart size is normal. The pulmonary vasculature is normal. The lungs are clear. IMPRESSION: 1. No acute pulmonary process.
[2019-09-30 17:38] LABS: Appearance,Urine Clear (Clear); Bilirubin,Urine Negative (Negative); Blood,Urine Negative (Negative); Color,Urine Light Yellow; Glucose,Urine (UA) Negative (Negative); Ketones,Urine Negative (Negative); Leukocyte Esterase,Urine Negative (Negative); Nitrite,Urine Negative (Negative); PH, Urine 6.5 (5.0-8.0); Protein,Urine Negative (Negative); Specific Gravity,Urine 1.006 (1.001-1.035); Urobilinogen,Urine <2.0 mg/dL (<2.0)
[2019-09-30 17:49] LABS: Amphetamine Screen,Urine Not Detected (NotDetected); Barbiturate Screen,Urine Not Detected (NotDetected); Benzodiazepines Screen,Urine Not Detected (NotDetected); Cocaine Screen,Urine Not Detected (NotDetected); Methadone Screen, Urine Not Detected (NotDetected); Opiate Screen,Urine Not Detected (NotDetected); Oxycodone Screen, Urine Not Detected (NotDetected); Phencyclidine Screen,Urine Not Detected (NotDetected); Tricyclic Antidepressant,Urine Not Detected (NotDetected); Urn Cannabinoid Scrn Not Detected (NotDetected)
[2019-09-30 20:07] VITALS: BP 116/72; PULSE 69; RESP 17
== END 2019-09-30 20:07 | disposition other institution (70) ==
LOC: EC 15:22
DX: F20.9 Schizophrenia, unspecified (principal); I11.0 Hypertensive heart disease with heart failure; I50.9 Heart failure, unspecified; E78.5 Hyperlipidemia, unspecified; F41.9 Anxiety disorder, unspecified; F17.200 Nicotine dependence, unspecified, uncomplicated; Z79.899 Other long term (current) drug therapy; Z91.048 Other nonmedicinal substance allergy status
CPT/HCPCS: 36415; 93005; 80053; 83605; 83735; 84484; 85025; 85610; 85730; 81003; 80306; 71046; 99285; G0480; 80320